=== PATIENT | male | born 1965 | race Caucasian/White ===

== ENCOUNTER 2020-11-12 14:02 | Inpatient (IN) | payer MEDICARE, SELFPAY ==
[2020-11-12 14:03] VITALS: BP 143/102; PULSE 88; RESP 20; TEMP 36.6; O2SAT 94; BMI 31.1
--- NOTE | 2020-11-12 15:24 | ED.VIS.GEN ---
History of Present Illness Chief Complaint: Substance Abuse Informant: Patient Narrative: Is a 55-year-old male with history of hemochromatosis, HIV (off his medications) and hypothyroid presenting for alcohol detox. Patient has a longstanding history of alcohol dependency. He states he has been drinking regularly for the past 8 months. He drinks 1/2 gallon of 40 proof vodka a day. He does use a THC substance as well as Ritalin which he has prescribed. He uses e-cigarettes. Patient states he is try to get sober because he is going to prison in December 09 for fellow any DUI. He states he does not have a drink he will get shaky and get the sweats. He denies any history of full DTs. His last drink was approximately 3 hours ago. Past Medical History - Allergies and Home Meds Allergies/Adverse Reactions: Allergies No Known Allergies Allergy (Verified 11/12/20 14:03) Past Medical History: - - HIV, hematoma process, hypothyroid, alcohol dependency Surgical History: noncontributory Lives: Alone Smoking Status: Current every day smoker Alcohol: Heavy - Family History Maternal Family History: Reports: No pertinent history Paternal Family History: Reports: No pertinent history Review of Systems General: Denies: Chills, Fever, Sweats Eyes: Denies: Visual changes - bilaterally, Diplopia ENT: Denies: Rhinorrhea, Sore throat Cardiovascular: Denies: Chest pain, Palpitations Respiratory: Denies: Dyspnea, Cough, Dyspnea on exertion Gastrointestinal: Denies: Abdominal pain, Nausea, Vomiting, Diarrhea, Melena, Hematochezia Genitourinary: Denies: Dysuria, Hematuria, Frequency Musculoskeletal: Denies: Back pain, Extremity Pain Skin: Denies: Rash, Wounds Neurological: Denies: Headache, Weakness, Numbness Physical Exam Vital Signs/Narrative: Vital Signs Temp Pulse Resp BP Pulse Ox 11/12/20 14:03 97.8 F 88 20 H 143/102 H 94 Inital Vital Signs reviewed: Yes General: Well nourished, Well developed, No Acute Distress Head: Normocephalic, Atraumatic Eyes: Perrl, EOMI ENT: Moist mucous membranes, No rhinorrhea Neck: Supple, Nontender Cardiovascular: Regular rate, Regular rhythm, No murmurs Respiratory: No distress, CTA bilaterally, Chest nontender Abdomen: Soft, Nontender, Nondistended, Normal bowel sounds Back: Nontender, Normal Inspection Extremities: Nontender, No edema Skin: Normal color, No rash Neurological: Alert, Oriented x3, Cranial nerves II-XII grossly intact, Normal Strength, Normal Sensation Psychological: Normal affect, Normal Mood Diagnostic/Tx/Re-eval Laboratory Data 11/12/20 11/12/20 11/12/20 15:30 15:30 15:30 WBC 7.5 RBC 3.65 L Hgb 13.6 Hct 37.7 L MCV 103.3 H MCH 37.3 H MCHC 36.1 H RDW Std Deviation 51.0 H RDW Coeff of Morena 13.3 Plt Count 185 MPV 9.1 Immature Gran % (Auto) 0.400 Neut % (Auto) 51.1 Lymph % (Auto) 41.5 H [place] % (Auto) 5.8 Eos % (Auto) 0.5 Baso % (Auto) 0.7 Absolute Neuts (auto) 3.8 Absolute Lymphs (auto) 3.10 Nucleated RBC % 0 PT 11.4 L INR 0.9 Sodium 137 Potassium 2.8 L Chloride 98 Carbon Dioxide 27.0 Anion Gap 12 BUN 8 Creatinine 1.40 H Estim Creat Clear Calc 64.67 Est GFR (MDRD) Af Amer 67 Est GFR (MDRD) Non-Af 56 L BUN/Creatinine Ratio 5.7 L Glucose 96 Calcium 9.0 Total Bilirubin 1.10 H AST 251 H ALT 82 H Alkaline Phosphatase 87 Total Protein 8.0 Albumin 4.1 Globulin 3.9 Albumin/Globulin Ratio 1.1 Urine Color Urine Clarity Urine pH Ur Specific [place] Urine Protein Urine Glucose (UA) Urine Ketones Urine Occult Blood Urine Nitrite Urine Bilirubin Urine Urobilinogen Ur Leukocyte Esterase Urine RBC Urine WBC Ur Squamous Epith Cells Urine Bacteria Urine Mucus Urine Opiates Screen Urine Methadone Screen Ur Barbiturates Screen Ur Phencyclidine Scrn Ur Amphetamines Screen U Methamphetamin-MDMA U Benzodiazepines Scrn Urine Cocaine Screen U Cannabinoids Screen Ur Drug Screen Comment Ethyl Alcohol 11/12/20 11/12/20 11/12/20 15:30 15:51 15:51 WBC RBC Hgb Hct MCV MCH MCHC RDW Std Deviation RDW Coeff of Morena Plt Count MPV Immature Gran % (Auto) Neut % (Auto) Lymph % (Auto) [place] % (Auto) Eos % (Auto) Baso % (Auto) Absolute Neuts (auto) Absolute Lymphs (auto) Nucleated RBC % PT INR Sodium Potassium Chloride Carbon Dioxide Anion Gap BUN Creatinine Estim Creat Clear Calc Est GFR (MDRD) Af Amer Est GFR (MDRD) Non-Af BUN/Creatinine Ratio Glucose Calcium Total Bilirubin AST ALT Alkaline Phosphatase Total Protein Albumin Globulin Albumin/Globulin Ratio Urine Color Yellow Urine Clarity Clear Urine pH 6.5 Ur Specific [place] 1.010 Urine Protein 30 H Urine Glucose (UA) Normal Urine Ketones 5 H Urine Occult Blood 50 H Urine Nitrite Negative Urine Bilirubin Negative Urine Urobilinogen Normal Ur Leukocyte Esterase Negative Urine RBC 0 SEEN Urine WBC 0 SEEN Ur Squamous Epith Cells 0 SEEN Urine Bacteria 0 SEEN Urine Mucus 0 SEEN Urine Opiates Screen NEGATIVE Urine Methadone Screen NEGATIVE Ur Barbiturates Screen NEGATIVE Ur Phencyclidine Scrn NEGATIVE Ur Amphetamines Screen NEGATIVE U Methamphetamin-MDMA NEGATIVE U Benzodiazepines Scrn NEGATIVE Urine Cocaine Screen POSITIVE H U Cannabinoids Screen POSITIVE H Ur Drug Screen Comment Ethyl Alcohol 244.0 - Medical Decision Making Patient is evaluated for request of alcohol detox. He appears nontoxic in no acute distress. Patient does appear mildly intoxicated. His motivation for going into detox is that he has to go to prison for felony DUI in 1 month and wants to be sober for that for. His brother is at the bedside. Detox screening labs are obtained and patient is admitted to the hospital service. ED Disposition - Plan for ED Patient: Disposition: Acute Care Hospital [facility] Diagnosis: Alcohol abuse, HIV (human immunodeficiency virus infection), Hypokalemia
[2020-11-12 15:47] LABS: Absolute Neutrophil Count 3.8 X10^3/uL (2.0-7.7); Basophil# 0.05 X10^3/uL; Basophil% 0.7 % (0-1); Eosinophil# 0.04 X10^3/uL; Eosinophils% 0.5 % (0-5); Hematocrit 37.7 % (40-54); Hemoglobin 13.6 g/dL (13.0-16.5); Lymphocyte % 41.5 % (19-41); Mean Corp Hgb Conc 36.1 g/dL (32-36); Mean Corpuscular Hgb 37.3 pg (27.0-32.0); Mean Corpuscular Volume 103.3 fL (80-94); Mean Platelet Vol. 9.1 fl (6.2-12.0); Monocyte# 0.43 X10^3/uL; Monocyte% 5.8 % (0-10); NRBC Flagged by Analyzer 0 % (0-5); Neutrophil # 3.82 X10^3/uL (2.7-7.7); Neutrophil % 51.1 % (47-70); Platelet Count 185 K/mm3 (150-450); RBC Distribution Width CV 13.3 % (11.6-14.6); Red Blood Count 3.65 M/mm3 (4.6-6.2); White Blood Count 7.5 K/mm3 (4.4-11.0)
[2020-11-12 15:49] VITALS: BP 159/93; PULSE 71; RESP 18; TEMP 37.1; O2SAT 96
[2020-11-12 15:49] LABS: International Normalized Ratio 0.9; Prothrombin Time (Protime)PT. 11.4 SECONDS (11.7-14.9)
[2020-11-12 16:00] LABS: Bacteria 0 SEEN /hpf (None Seen); Mucous, Urine 0 SEEN /hpf (<or=2+); Red Blood Cells-Urine 0 SEEN /hpf (0-5); Squamous Epithelial Cells - UA 0 SEEN /hpf (0-5); White Blood Cells 0 SEEN /hpf (0-5)
[2020-11-12 16:01] LABS: ALB/GLOB Ratio 1.1 RATIO (0.9-2.4); AST(SGOT) 251 U/L (15-37); Alanine Aminotransfer ALT/SGPT 82 U/L (16-61); Albumin, Serum 4.1 g/dL (3.2-5.0); Alkaline Phosphatase 87 U/L (45-117); Anion Gap 12 (5-15); BUN 8 mg/dL (7-18); BUN/Creat Ratio 5.7 RATIO (10-20); Chloride 98 mmol/L (98-107); EST Glomerular Filtration Rate 56 mL/min (>60); Est Glom Filt Rate - Afr Amer 67 mL/min (>60); Estimated Creatinine Clearance 64.67 ml/min; Globulin 3.9 g/dL (2.2-4.2); Glucose 96 mg/dL (74-106); Potassium 2.8 mmol/L (3.5-5.1); Sodium Level 137 mmol/L (136-145)
[2020-11-12 16:09] LABS: Color, Urine Yellow (Yellow); Glucose, Dipstick Normal (Normal); Ketone-Dipstick 5 mg/dl (Negative); Leukocyte Esterase-Dipstick Negative /ul (Negative); Nitrite-Dipstick Negative (Negative); Occult Blood-Urine 50 /ul (Negative); Protein-Dipstick 30 mg/dl (Negative); Urine Bilirubin Dipstick Negative (Negative); Urine Clarity Clear (Clear); Urine Urobilinogen Normal (Normal); Urine pH 6.5 (5.0 - 8.0)
[2020-11-12 16:12] VITALS: BP 159/93; PULSE 71; RESP 18; TEMP 37.1; O2SAT 96
[2020-11-12 16:25] LABS: Amphetamine Urine VISTA NEGATIVE (<1000 ng/mL); Barbiturate Urine VISTA NEGATIVE (< 200 ng/mL); Benzodiazepine Urine VISTA NEGATIVE (< 200 ng/mL); Cocaine Urine VISTA POSITIVE (< 300 ng/mL); Ecstacy Urine VISTA NEGATIVE (< 500 ng/mL); Methadone Urine VISTA NEGATIVE (< 300 ng/mL); PCP Urine VISTA NEGATIVE (< 25 ng/mL); THC Urine VISTA POSITIVE (< 50 ng/mL); Vista UDS pH Range 7
--- NOTE | 2020-11-12 16:25 | NURSING ---
MED SURG SLY ALCOHOL DETOX
--- NOTE | 2020-11-12 16:26 | HP.PCM_ITS ---
Problem List (1) Acute alcohol withdrawal Status: Acute (2) Alcohol abuse Status: Chronic (3) Bipolar disorder Status: Chronic (4) Hemochromatosis Status: Chronic (5) Hypothyroidism Status: Chronic (6) HIV (human immunodeficiency virus infection) Status: Chronic History of Present Illness Date of Admission: 11/12/20 Chief Complaint: Requesting admission for acute alcohol withdrawal. The patient is a 55 year old M with past medical history as mentioned above presented to the emergency room requesting admission for acute alcohol intoxication/impending withdrawal for medical stabilization. He has a known history of alcohol abuse, has been drinking for almost 40 years, went for detox last time was on 2011 but he relapsed. He has been drinking every day since then. His last drink was this afternoon around 1 PM. He has been drinking he avily every day and also admitted snorting cocaine occasionally and uses marijuana as well. He mentioned that he does not use cocaine or marijuana daily but intermittently. He mentioned that he supposed to take medications for HIV and hypothyroidism but he has been taking his medication for at least 6 to 7 months. He has been noncompliant. He had a history of HIV, has been on treatment with antiretroviral medications but he is noncompliant. He had a history of hypothyroidism has been on high dose of levothyroxine but he is not taking his levothyroxine. He had a history of depression and bipolar disorder but again not taking his medications including Lamictal and fluoxetine. In the emergency department, blood pressure was slight elevated, other vital signs were stable. Routine blood work was remarkable for creatinine of 1.40, potassium is 2.8. LFT revealed slight elevated liver transaminases. Alk phos and bilirubin are normal. Blood alcohol level is 244. Urinalysis was unremarkable. Urine drug screen was positive for cocaine and cannabinoids. Patient is being admitted for acute alcohol intoxication/impending withdrawal for medical stabilization. Past Medical History Past Medical History (Chronic Problems): Chronic Problems Alcohol abuse (Chronic) Bipolar disorder (Chronic) Hemochromatosis (Chronic) Hypothyroidism (Chronic) HIV (human immunodeficiency virus infection) (Chronic) Allergies No Known Allergies Allergy (Verified 11/12/20 14:03) Home Medications: Ambulatory Orders Medication Instructions Recorded Dronabinol [Marinol] 10 mg PO QHS 11/12/20 Fluoxetine HCl 40 mg PO DAILY 11/12/20 Lamotrigine [Lamotrigine ER] 300 mg PO QHS 11/12/20 Levothyroxine Sodium [Synthroid] 300 mcg PO DAILY 11/12/20 Omeprazole 20 mg PO DAILY 11/12/20 traZODone [Desyrel] 200 mg PO QHS 11/12/20 Surgical History: noncontributory Psychiatric History: Bipolar, Depression Lives: Alone Smoking Status: Current every day smoker Tobacco Use: - - Electronic cigarettes. Alcohol: Heavy Drugs: Cocaine, Marijuana - *Family History Maternal History Items: No pertinent history Paternal History Items: No pertinent history Review of Systems Constitutional: Denies: Anorexia, Chills, Fever, Weakness Eyes: Denies: Blurred vision, Double vision, Drainage, Redness HEENT: Denies: Difficulty Hearing, Ear Pain, Eye Pain, Nasal Congestion, Sore Throat Cardiovascular: Denies: Chest Pain, Claudication, Chest Tightness, Edema, Heaviness, Palpitations, Syncope Respiratory: Denies: Cough, Pleuritic Pain, Shortness of Breath, Sputum production, Wheezing Gastrointestinal: Denies: Abdominal Pain, Constipation, Diarrhea, Nausea, Vomiti ng Genitourinary: Denies: Dysuria, Frequency, Hematuria Musculoskeletal: Denies: Arm Pain, Back Pain, Foot Pain Skin: Denies: Dryness, Rash Neurological: Denies: Balance problems, Blurred vision, Double vision, Slurred speech, Confusion, Headaches Psychiatric: Reports: Depression. Denies: Anxiety Endocrine: Denies: Change in Body Habitus, Polydipsia, Polyuria VTE Information - Inpt Only VTE Present on Admission: No VTE Mechan Device Prophylaxis: None VTE Pharm Prophylaxis ordered?: No Patient Problems: Active and Suspected Problems Hypokalemia (Acute) Acute alcohol withdrawal (Acute) - Physical Exam Vitals/I&O's: Vital Signs Temp Pulse Resp BP Pulse Ox 98.7 F 71 18 159/93 H 96 11/12/20 16:12 11/12/20 16:12 11/12/20 16:12 11/12/20 16:12 11/12/20 16:12 Oxygen Delivery Method Room Air Weight: 230 lb Body Mass Index (BMI) 31.1 General: Alert, Oriented x3, Cooperative, No apparent distress HEENT: Atraumatic, PERRLA, EOMI, Normocephalic Oral: Moist Mucosa, No Gingival or Mucosal Lesions/ Ulcerations Neck: Supple, No JVD, Negative Carotid Bruits, Trachea Midline, Thyroid Normal Size and Texture Lungs: Clear to auscultation, Normal air movement, No rhonchi, No wheeze, No rales Cardiovascular: Regular rate, Regular Rhythm, Normal S1, Normal S2, PMI Normal Abdomen: Bowel Sounds Present, Soft, Non Tender, Non-Distended, No Hepato- splenomegaly Extremities: No clubbing, No cyanosis, Edema - Trace edema. Skin: No rashes, No breakdown Lymphatic: No Cervical, Supraclavicular, or Inguinal Adenopathy Neurological: Cranial nerves II-XII grossly intact, Motor Exam 5/5 strength throughout Psych/Mental Status: Normal Affect, Appropriate, Alert and oriented to time, place, person, mood and affect Laboratory Results 11/12/20 15:30: WBC 7.5, RBC 3.65 L, Hgb 13.6, Hct 37.7 L, MCV 103.3 H, MCH 37.3 H, MCHC 36.1 H, RDW Std Deviation 51.0 H, RDW Coeff of Morena 13.3, Plt Count 185, MPV 9.1, Immature Gran % (Auto) 0.400, Neut % (Auto) 51.1, Lymph % (Auto) 41.5 H, [place] % (Auto) 5.8, Eos % (Auto) 0.5, Baso % (Auto) 0.7, Absolute Neuts (auto) 3.8, Absolute Lymphs (auto) 3.10, Nucleated RBC % 0 11/12/20 15:30: PT 11.4 L, INR 0.9 11/12/20 15:30: Sodium 137, Potassium 2.8 L, Chloride 98, Carbon Dioxide 27.0, Anion Gap 12, BUN 8, Creatinine 1.40 H, Estim Creat Clear Calc 64.67, Est GFR (MDRD) Af Amer 67, Est GFR (MDRD) Non-Af 56 L, BUN/Creatinine Ratio 5.7 L, Glucose 96, Calcium 9.0, Total Bilirubin 1.10 H, AST 251 H, ALT 82 H, Alkaline Phosphatase 87, Total Protein 8.0, Albumin 4.1, Globulin 3.9, Albumin/Globulin Ratio 1.1 11/12/20 15:30: Ethyl Alcohol 244.0 11/12/20 15:51: Urine Opiates Screen NEGATIVE, Urine Methadone Screen NEGATIVE, Ur Barbiturates Screen NEGATIVE, Ur Phencyclidine Scrn NEGATIVE, Ur Amphetamines Screen NEGATIVE, U Methamphetamin-MDMA NEGATIVE, U Benzodiazepines Scrn NEGATIVE, Urine Cocaine Screen POSITIVE H, U Cannabinoids Screen POSITIVE H, Ur Drug Screen Comment 11/12/20 15:51: Urine Color Yellow, Urine Clarity Clear, Urine pH 6.5, Ur Specific [place] 1.010, Urine Protein 30 H, Urine Glucose (UA) Normal, Urine Ketones 5 H, Urine Occult Blood 50 H, Urine Nitrite Negative, Urine Bilirubin Negative, Urine Urobilinogen Normal, Ur Leukocyte Esterase Negative, Urine RBC 0 SEEN, Urine WBC 0 SEEN, Ur Squamous Epith Cells 0 SEEN, Urine Bacteria 0 SEEN, Urine Mucus 0 SEEN Assessment/Plan All Active Problems Hypokalemia (Acute) Acute alcohol withdrawal (Acute) This is a 55 years old male patient presented to the emergency room requesting admission for acute alcohol intoxication/impending withdrawal and he is being admitted for medical stabilization. #1 acute alcohol desiccation/impending withdrawal: Blood alcohol level on admission was 244. Patient denies significant withdrawal symptoms at this time. Patient admitted snorting heroin and smoked marijuana occasionally. He is not a daily user. Plan: Admit to MedSurg floor, initiate alcohol withdrawal protocol with tapering phenobarbital, folic acid and thiamine supplement, as needed Neurontin, Vistaril, Imodium, Zofran, trazodone, consult 180 program. #2 hypokalemia/mild PIERRE: Plan to start gentle IV fluids for hydration, replace potassium with p.o. K. Dur 60 mEq x 1, repeat CBC and BMP tomorrow morning. #3 HIV infection: Patient has been noncompliant, stopped taking his medications of months ago. Recommend to resume home medications and follow-up with ID as outpatient. #4 hypothyroidism: Again, patient has been noncompliant, not taking his levothyroxine. Plan to resume levothyroxine, check TSH. #5 depression/bipolar disorder: Resume fluoxetine and lamotrigine. #6 hemochromatosis: Liver transaminases are slightly elevated likely because of alcoholism. Bilirubin is 1.1, alk phos is normal. #7 DVT prophylaxis: Low risk patient, no prophylaxis indicated. This note was generated with Dragon dictation software. It may contain incorrect words, spelling, and punctuation that were not noted in checking the note befor e signing. Inpatient E&M: [id number] Init Hosp L2
--- NOTE | 2020-11-12 16:47 | CM.ED ---
SOCIAL WORK Referral Source: Dr. Russo Reason for Consult: Alcohol detox Patient presents for alcohol detox. Prior to patient's arrival received phone call from family inquiring about detox program. Patient from [facility] [place]. Education of [facility] provided. Patient in agreement to detox. Last drink was prior to arrival. Call to [facility] Treatment NavigatorBarak to update on patient's admission. emu farm worker to be in tomorrow to complete assessment. Plan: Admit to [facility], MASTER SCHEDULER, VISUAL MERCHANDISING SPECIALIST
[2020-11-12 17:35] VITALS: BP 145/85; PULSE 71; RESP 16; TEMP 36.8; O2SAT 97
[2020-11-12 17:36] VITALS: BMI 30.7
[2020-11-12 17:37] VITALS: BMI 30.7
[2020-11-12] MEDS: Potassium Chloride Oral Tablet 20 MEQ 60 MEQ PO (18:04)
[2020-11-12] MEDS: Phenobarbital 32.4 MG Tablet PO ×2 (18:04→21:42)
[2020-11-12] MEDS: 0.9% Normal Saline 1,000 ML 100 ML IV (18:15)
[2020-11-12] MEDS: Dronabinol 2.5 MG Capsule 10 MG PO (21:42)
[2020-11-12] MEDS: traZODone 100 MG Tablet PO (21:44)
[2020-11-12] MEDS: lamoTRIgine 150 MG Tablet 300 MG PO (21:45)
[2020-11-12 21:50] VITALS: BP 140/84; PULSE 69; RESP 16; TEMP 36.8; O2SAT 94
[2020-11-13 02:00] VITALS: BP 141/83; PULSE 69; RESP 16; TEMP 36.5; O2SAT 94
[2020-11-13] MEDS: Phenobarbital 32.4 MG Tablet PO ×6 (02:14→21:38)
[2020-11-13] MEDS: Ondansetron 8 MG Tablet PO (02:21)
[2020-11-13] MEDS: Dicyclomine 10 MG Capsule 20 MG PO (02:21)
[2020-11-13 05:59] VITALS: BP 130/83; PULSE 64; RESP 16; TEMP 36.7; O2SAT 96
[2020-11-13 05:59] LABS: Absolute Lymphocyte Count 1.71 X10^3/uL (0.83-4.51); Absolute Neutrophil Count 3.8 X10^3/uL (2.0-7.7); Basophil# 0.04 X10^3/uL; Basophil% 0.7 % (0-1); Eosinophil# 0.08 X10^3/uL; Eosinophils% 1.3 % (0-5); Hematocrit 35.6 % (40-54); Hemoglobin 12.3 g/dL (13.0-16.5); Lymphocyte # 1.71 X10^3/ul (4.0); Lymphocyte % 28.2 % (19-41); Mean Corp Hgb Conc 34.6 g/dL (32-36); Mean Corpuscular Hgb 36.8 pg (27.0-32.0); Mean Corpuscular Volume 106.6 fL (80-94); Mean Platelet Vol. 8.9 fl (6.2-12.0); Monocyte# 0.39 X10^3/uL; Monocyte% 6.4 % (0-10); NRBC Flagged by Analyzer 0 % (0-5); Neutrophil # 3.81 X10^3/uL (2.7-7.7); Neutrophil % 62.9 % (47-70); Platelet Count 137 K/mm3 (150-450); RBC Distribution Width CV 13.6 % (11.6-14.6); RBC Distribution Width SD 53.6 fl (35.1-43.9); Red Blood Count 3.34 M/mm3 (4.6-6.2); White Blood Count 6.1 K/mm3 (4.4-11.0)
[2020-11-13] MEDS: hydrOXYzine PAM 25 MG Capsule 50 MG PO ×2 (06:09→15:10)
[2020-11-13] MEDS: Levothyroxine 150 MCG Tablet 300 MCG PO (06:09)
[2020-11-13] MEDS: Gabapentin 300 MG Capsule PO (06:09)
[2020-11-13 06:25] LABS: AST(SGOT) 170 U/L (15-37); Alanine Aminotransfer ALT/SGPT 63 U/L (16-61); Albumin, Serum 3.2 g/dL (3.2-5.0); Alkaline Phosphatase 86 U/L (45-117); Anion Gap 7 (5-15); BUN 8 mg/dL (7-18); BUN/Creat Ratio 6.4 RATIO (10-20); Calcium,Total 8.3 mg/dL (8.5-10.1); Chloride 104 mmol/L (98-107); Creatinine, Serum 1.25 mg/dL (0.70-1.30); EST Glomerular Filtration Rate 63 mL/min (>60); Est Glom Filt Rate - Afr Amer 77 mL/min (>60); Estimated Creatinine Clearance 72.43 ml/min; Globulin 3.3 g/dL (2.2-4.2); Glucose 95 mg/dL (74-106); Potassium 3.1 mmol/L (3.5-5.1); Protein, Total 6.5 g/dL (6.4-8.2); Sodium Level 139 mmol/L (136-145)
[2020-11-13 07:48] LABS: Magnesium 2.2 mg/dL (1.6-2.6)
[2020-11-13] MEDS: Thiamine Hydrochloride 100 MG Tablet PO (10:12)
[2020-11-13] MEDS: Folic Acid 1 MG Tablet PO (10:12)
[2020-11-13] MEDS: Pantoprazole Sodium 20 MG Tablet PO (10:13)
[2020-11-13] MEDS: FLUoxetine 20 MG Capsule 40 MG PO (10:13)
[2020-11-13] MEDS: Potassium Chloride Oral Tablet 20 MEQ 60 MEQ PO (10:20)
--- NOTE | 2020-11-13 10:24 | ADDICTION ---
This policy writer sales met with PT to complete ASAM, MSE, AUDIT assessments and to plan for d/c. All assessments completed, faxed to [facility] and placed in PT's chart. PT plans to f/u with [facility] for case management, individual counseling, and psychiatry upon d/c. PT also reported wanting to engage in AA meetings. Appts are scheduled for 11/18/2020 at 11AM w/ case management; 11/25/20 at 10:45AM with psychiatry; 12/05/20 at 9AM for counseling.
--- NOTE | 2020-11-13 10:46 | PCM.PN.HOSP ---
Patient Problems: Active and Suspected Problems Hypokalemia (Acute) Acute alcohol withdrawal (Acute) Subjective: Resting comfortably, no new issues overnight. Vitals/I&O's: Vital Signs Temp Pulse Resp BP Pulse Ox 98.0 F 64 16 130/83 H 96 11/13/20 05:59 11/13/20 05:59 11/13/20 05:59 11/13/20 05:59 11/13/20 05:59 Oxygen Delivery Method Room Air Weight: 226 lb 6.4 oz Body Mass Index (BMI) 30.7 Intake and Output for Last 24 Hours 11/11/20 11/12/20 11/13/20 23:59 23:59 23:59 Intake Total 240 / 240 958.33 / 958.33 Balance 240 / 240 958.33 / 958.33 General: Alert, Oriented x3, Cooperative, No apparent distress HEENT: Atraumatic, PERRLA, EOMI, Normocephalic Oral: Moist Mucosa Neck: Supple, No JVD Lungs: Clear to auscultation, Normal air movement, No rhonchi, No wheeze, No rales Abdomen: Soft, Non Tender, Non-Distended, No Hepato-splenomegaly Extremities: Capillary Refill Less than 3 Seconds, Edema - Trace Skin: No rashes, No breakdown Neurological: Neuro grossly intact, Sensory exam intact to light touch and pain Psych/Mental Status: Normal Affect, Appropriate Laboratory Results 11/12/20 15:30: WBC 7.5, RBC 3.65 L, Hgb 13.6, Hct 37.7 L, MCV 103.3 H, MCH 37.3 H, MCHC 36.1 H, RDW Std Deviation 51.0 H, RDW Coeff of Morena 13.3, Plt Count 185, MPV 9.1, Immature Gran % (Auto) 0.400, Neut % (Auto) 51.1, Lymph % (Auto) 41.5 H, [place] % (Auto) 5.8, Eos % (Auto) 0.5, Baso % (Auto) 0.7, Absolute Neuts (auto) 3.8, Absolute Lymphs (auto) 3.10, Nucleated RBC % 0 11/12/20 15:30: PT 11.4 L, INR 0.9 11/12/20 15:30: Sodium 137, Potassium 2.8 L, Chloride 98, Carbon Dioxide 27.0, Anion Gap 12, BUN 8, Creatinine 1.40 H, Estim Creat Clear Calc 64.67, Est GFR (MDRD) Af Amer 67, Est GFR (MDRD) Non-Af 56 L, BUN/Creatinine Ratio 5.7 L, Glucose 96, Calcium 9.0, Total Bilirubin 1.10 H, AST 251 H, ALT 82 H, Alkaline Phosphatase 87, Total Protein 8.0, Albumin 4.1, Globulin 3.9, Albumin/Globulin Ratio 1.1 11/12/20 15:30: Ethyl Alcohol 244.0 11/12/20 15:30: TSH 69.30 H 11/12/20 15:51: Urine Opiates Screen NEGATIVE, Urine Methadone Screen NEGATIVE, Ur Barbiturates Screen NEGATIVE, Ur Phencyclidine Scrn NEGATIVE, Ur Amphetamines Screen NEGATIVE, U Methamphetamin-MDMA NEGATIVE, U Benzodiazepines Scrn NEGATIVE, Urine Cocaine Screen POSITIVE H, U Cannabinoids Screen POSITIVE H, Ur Drug Screen Comment 11/12/20 15:51: Urine Color Yellow, Urine Clarity Clear, Urine pH 6.5, Ur Specific [place] 1.010, Urine Protein 30 H, Urine Glucose (UA) Normal, Urine Ketones 5 H, Urine Occult Blood 50 H, Urine Nitrite Negative, Urine Bilirubin Negative, Urine Urobilinogen Normal, Ur Leukocyte Esterase Negative, Urine RBC 0 SEEN, Urine WBC 0 SEEN, Ur Squamous Epith Cells 0 SEEN, Urine Bacteria 0 SEEN, Urine Mucus 0 SEEN 11/13/20 05:52: WBC 6.1, RBC 3.34 L, Hgb 12.3 L, Hct 35.6 L, MCV 106.6 H, MCH 36.8 H, MCHC 34.6, RDW Std Deviation 53.6 H, RDW Coeff of More[place] 13.6, Plt Count 137 L, MPV 8.9, Immature Gran % (Auto) 0.500, Neut % (Auto) 62.9, Lymph % (Auto) 28.2, [place] % (Auto) 6.4, Eos % (Auto) 1.3, Baso % (Auto) 0.7, Absolute Neuts (auto) 3.8, Absolute Lymphs (auto) 1.71, Nucleated RBC % 0 11/13/20 05:52: Sodium 139, Potassium 3.1 L, Chloride 104, Carbon Dioxide 28.0, Anion Gap 7, BUN 8, Creatinine 1.25, Estim Creat Clear Calc 72.43, Est GFR (MDRD) Af Amer 77, Est GFR (MDRD) Non-Af 63, BUN/Creatinine Ratio 6.4 L, Glucose 95, Calcium 8.3 L, Total Bilirubin 1.10 H, AST 170 H, ALT 63 H, Alkaline Phosphatase 86, Total Protein 6.5, Albumin 3.2, Globulin 3.3, Albumin/Globulin Ratio 1.0 11/13/20 05:52: Magnesium 2.2 Current Medications Dicyclomine HCl (Dicyclomine 10 Mg Capsule) 20 mg PO Q6H PRN PRN PRN Reason: abdominal discomfort Last Admin: 11/13/20 02:21 Dose: 20 mg Documented by: Dronabinol (Dronabinol 2.5 Mg Capsule) 10 mg PO QHS [facility] Last Admin: 11/12/20 21:42 Dose: 10 mg Documented by: Fluoxetine HCl (Fluoxetine 20 Mg Capsule) 40 mg PO DAILY [facility] Last Admin: 11/13/20 10:13 Dose: 40 mg Documented by: Folic Acid (Folic Acid 1 Mg Tablet) 1 mg PO DAILY@0800 [facility] Last Admin: 11/13/20 10:12 Dose: 1 mg Documented by: Gabapentin (Gabapentin 300 Mg Capsule) 300 mg PO Q8H PRN PRN PRN Reason: moderate to severe anxiety Last Admin: 11/13/20 06:09 Dose: 300 mg Documented by: Hydroxyzine Pamoate (Hydroxyzine Ana 25 Mg Capsule) 50 mg PO Q4H PRN PRN PRN Reason: mild anxiety Last Admin: 11/13/20 06:09 Dose: 50 mg Documented by: Lamotrigine (Lamotrigine 150 Mg Tablet) 300 mg PO QHS [facility] Last Admin: 11/12/20 21:45 Dose: 300 mg Documented by: Levothyroxine Sodium (Levothyroxine 150 Mcg Tablet) 300 mcg PO DAILY@0600 [facility] Last Admin: 11/13/20 06:09 Dose: 300 mcg Documented by: Loperamide HCl (Loperamide 2 Mg Capsule) 2 mg PO Q4H PRN PRN PRN Reason: LOOSE STOOLS Nutritional Formula (Lactose Free) (Ensure Enlive 120 Ml Liquid) 120 ml PO 4X/DAY [facility] Last Admin: 11/13/20 10:19 Dose: 120 ml Documented by: Ondansetron HCl (Ondansetron 8 Mg Tablet) 8 mg PO Q8H PRN PRN PRN Reason: NAUSEA Last Admin: 11/13/20 02:21 Dose: 8 mg Documented by: Pantoprazole Sodium (Pantoprazole Sodium 20 Mg Tablet) 20 mg PO DAILY [facility] Last Admin: 11/13/20 10:13 Dose: 20 mg Documented by: Phenobarbital (Phenobarbital 32.4 Mg Tablet) 97.2 mg PO Q4H [facility]; Taper Stop: 11/17/20 01:59 Last Admin: 11/13/20 10:12 Dose: 97.2 mg Documented by: Sodium Chloride (0.9% Saline Lock 10 Ml Syringe) 10 - 40 ml IV UD PRN PRN Reason: SALINE FLUSH Thiamine HCl ([facility] Hydrochloride 100 Mg Tablet) [facility] Admin: 11/13/20 10:12 Dose: 100 mg Documented by: Trazodone HCl (Trazodone 100 Mg Tablet) 100 mg PO QHS PRN PRN Reason: INSOMNIA Trazodone HCl (Trazodone 100 Mg Tablet) 100 mg PO QHS [facility] Last Admin: 11/12/20 21:44 Dose: 100 mg Documented by: Medical Necessity - Tobacco Use Smoking Status: Current every day smoker Tobacco Use: Cigarettes, Vapor Assessment/Plan All Active Problems Hypokalemia (Acute) Acute alcohol withdrawal (Acute) 1. Acute alcohol withdrawal/depression/bipolar disorder -Continue with the alcohol withdrawal protocol -Resume his Prozac and his Lamictal -He will need to follow-up with 180 as an outpatient 2. Hypothyroidism -Has not been taking his medications for several months -TSH was elevated to 69, discussed with him that being severely hypothyroid for long enough can be fatal -Continue with his Synthroid dosage 3. HIV -He has been noncompliant with his medications and stopped taking his medications for several months -He did bring them with him and therefore will resume those medications -He will need to follow-up with ID as an outpatient for viral load testing and if adjustments to his medications need to be made since he has been off of them for several months -I discussed with him that once again not taking his HIV medications can be fatal 4. Hemochromatosis -LFTs are slightly elevated likely secondary to his hemochromatosis on top of his alcohol use -Continue to monitor 5. Hypokalemia -Potassium increased from 2.8-3.1, will replace today -Magnesium is normal -PIERRE has resolved VTE: Ambulation Inpatient E&M: 38342 Subs Hosp L2
[2020-11-13 15:13] VITALS: BP 134/72; PULSE 63; RESP 18; TEMP 36.3; O2SAT 97
--- NOTE | 2020-11-13 15:32 | CHAPLAIN ---
Type of Pastoral Visit ___ Initial Visit ___ Follow-up Visit ___ On-call Visit ___ General Patient Visit ___ Spiritual Assessment ___ Family Conference ___ Bereavement ___ Rapid Response ___ Code Blue ___ Other (describe below) Pastoral Care Referral From ___ Patient ___ Family ___ Nurse ___ Physician ___ Resource Director ___ Title One Teacher ___ Other (describe below) Sacrament/Intervention ___ Active listening ___ Anointing ___ Religious ___ Bereavement ___ Communion ___ Teresa exploration ___ ___ Life review ___ Prayer ___ Reconciliation ___ Sacrament of Sick ___ Supportive presence ___ Wedding ___ Other (describe below) Pastoral Comments patient awakened to his name; pt asked if this field service analyst was working tomorrow because I'm really tired right now; agreement for a visit on
[2020-11-13 20:41] VITALS: BP 131/87; PULSE 61; RESP 18; TEMP 36.4; O2SAT 100
[2020-11-13] MEDS: Dronabinol 2.5 MG Capsule 10 MG PO (21:38)
[2020-11-13] MEDS: lamoTRIgine 150 MG Tablet 300 MG PO (21:38)
[2020-11-13] MEDS: traZODone 100 MG Tablet PO (21:38)
[2020-11-14 02:00] VITALS: BP 120/76; PULSE 59; RESP 18; TEMP 36.6; O2SAT 94
[2020-11-14] MEDS: Phenobarbital 32.4 MG Tablet PO ×6 (02:04→22:29)
[2020-11-14] MEDS: Levothyroxine 150 MCG Tablet 300 MCG PO (06:27)
[2020-11-14 06:35] LABS: Anion Gap 7 (5-15); BUN 11 mg/dL (7-18); BUN/Creat Ratio 7.9 RATIO (10-20); Chloride 103 mmol/L (98-107); Creatinine, Serum 1.39 mg/dL (0.70-1.30); EST Glomerular Filtration Rate 56 mL/min (>60); Est Glom Filt Rate - Afr Amer 68 mL/min (>60); Estimated Creatinine Clearance 65.13 ml/min; Glucose 94 mg/dL (74-106); Potassium 3.6 mmol/L (3.5-5.1); Sodium Level 141 mmol/L (136-145)
[2020-11-14] MEDS: Pantoprazole Sodium 20 MG Tablet PO (09:39)
[2020-11-14] MEDS: hydrOXYzine PAM 25 MG Capsule 50 MG PO ×2 (09:39→14:43)
[2020-11-14] MEDS: Thiamine Hydrochloride 100 MG Tablet PO (09:39)
[2020-11-14] MEDS: Folic Acid 1 MG Tablet PO (09:39)
[2020-11-14] MEDS: FLUoxetine 20 MG Capsule 40 MG PO (09:39)
[2020-11-14 09:42] VITALS: BP 125/66; PULSE 61; RESP 18; TEMP 36.7; O2SAT 95
--- NOTE | 2020-11-14 10:28 | PN_ITS ---
Patient Problems: Active and Suspected Problems Hypokalemia (Acute) Acute alcohol withdrawal (Acute) Subjective: Had a little bit of a rough night with CIWA was at 17. Vitals/I&O's: Vital Signs Temp Pulse Resp BP Pulse Ox 98.0 F 61 18 125/66 H 95 11/14/20 09:42 11/14/20 09:42 11/14/20 09:42 11/14/20 09:42 11/14/20 09:42 Oxygen Delivery Method Room Air Weight: 226 lb 6.636 oz Body Mass Index (BMI) 30.7 Intake and Output for Last 24 Hours 11/12/20 11/13/20 11/14/20 23:59 23:59 23:59 Intake Total 240 / 240 958.33 / 958.33 Balance 240 / 240 958.33 / 958.33 General: Alert, Oriented x3, Cooperative, No apparent distress HEENT: Atraumatic, PERRLA, EOMI, Normocephalic Oral: Moist Mucosa Neck: Supple, No JVD Lungs: Clear to auscultation, Normal air movement, No rhonchi, No wheeze, No rales Abdomen: Soft, Non Tender, Non-Distended, No Hepato-splenomegaly Extremities: Capillary Refill Less than 3 Seconds, Edema - Trace Skin: No rashes, No breakdown Neurological: Neuro grossly intact, Sensory exam intact to light touch and pain Psych/Mental Status: Normal Affect, Appropriate Laboratory Results 11/14/20 06:00: Sodium 141, Potassium 3.6, Chloride 103, Carbon Dioxide 31.0, Anion Gap 7, BUN 11, Creatinine 1.39 H, Estim Creat Clear Calc 65.13, Est GFR (MDRD) Af Amer 68, Est GFR (MDRD) Non-Af 56 L, BUN/Creatinine Ratio 7.9 L, Gluco se 94, Calcium 9.0 Current Medications Dicyclomine HCl (Dicyclomine 10 Mg Capsule) 20 mg PO Q6H PRN PRN PRN Reason: abdominal discomfort Last Admin: 11/13/20 02:21 Dose: 20 mg Documented by: Dronabinol (Dronabinol 2.5 Mg Capsule) 10 mg PO QHS [facility] Last Admin: 11/13/20 21:38 Dose: 10 mg Documented by: Fluoxetine HCl (Fluoxetine 20 Mg Capsule) 40 mg PO DAILY [facility] Last Admin: 11/14/20 09:39 Dose: 40 mg Documented by: Folic Acid (Folic Acid 1 Mg Tablet) 1 mg PO DAILY@0800 [facility] Last Admin: 11/14/20 09:39 Dose: 1 mg Documented by: Gabapentin (Gabapentin 300 Mg Capsule) 300 mg PO Q8H PRN PRN PRN Reason: moderate to severe anxiety Last Admin: 11/13/20 06:09 Dose: 300 mg Documented by: Hydroxyzine Pamoate (Hydroxyzine Ana 25 Mg Capsule) 50 mg PO Q4H PRN PRN PRN Reason: mild anxiety Last Admin: 11/14/20 09:39 Dose: 50 mg Documented by: Lamotrigine (Lamotrigine 150 Mg Tablet) 300 mg PO QHS [facility] Last Admin: 11/13/20 21:38 Dose: 300 mg Documented by: Levothyroxine Sodium (Levothyroxine 150 Mcg Tablet) 300 mcg PO DAILY@0600 [facility] Last Admin: 11/14/20 06:27 Dose: 300 mcg Documented by: Loperamide HCl (Loperamide 2 Mg Capsule) 2 mg PO Q4H PRN PRN PRN Reason: LOOSE STOOLS Nutritional Formula (Lactose Free) (Ensure Enlive 120 Ml Liquid) 120 ml PO 4X/DAY [facility] Last Admin: 11/13/20 21:38 Dose: 120 ml Documented by: Ondansetron HCl (Ondansetron 8 Mg Tablet) 8 mg PO Q8H PRN PRN PRN Reason: NAUSEA Last Admin: 11/13/20 02:21 Dose: 8 mg Documented by: Pantoprazole Sodium (Pantoprazole Sodium 20 Mg Tablet) 20 mg PO DAILY [facility] Last Admin: 11/14/20 09:39 Dose: 20 mg Documented by: Phenobarbital (Phenobarbital 32.4 Mg Tablet) 64.8 mg PO Q4H [facility]; Taper Stop: 11/17/20 01:59 Last Admin: 11/14/20 09:38 Dose: 64.8 mg Documented by: Sodium Chloride (0.9% Saline Lock 10 Ml Syringe) 10 - 40 ml IV UD PRN PRN Reason: SALINE FLUSH Thiamine HCl ([facility]amine Hydrochloride 100 Mg Tablet) [facility] Last Admin: 11/14/20 09:39 Dose: 100 mg Documented by: Trazodone HCl (Trazodone 100 Mg Tablet) 100 mg PO QHS PRN PRN Reason: INSOMNIA Trazodone HCl (Trazodone 100 Mg Tablet) 100 mg PO QHS [facility] Last Admin: 11/13/20 21:38 Dose: 100 mg Documented by: STROKE Vital Signs/Narrative: Vital Signs Temp Pulse Resp BP Pulse Ox 11/14/20 09:42 98.0 F 61 18 125/66 H 95 Medical Necessity - Tobacco Use Smoking Status: Current every day smoker Tobacco Use: Cigarettes, Vapor Assessment/Plan All Active Problems Hypokalemia (Acute) Acute alcohol withdrawal (Acute) 1. Acute alcohol withdrawal/depression/bipolar disorder -Continue with the alcohol withdrawal protocol -Resume his Prozac and his Lamictal at 25 mg daily to avoid any side effects we will plan to titrate him up over the next 6 to 8 weeks to his 300 mg nightly dose. -He will need to follow-up with 180 as an outpatient 2. Hypothyroidism -Has not been taking his medications for several months -TSH was elevated to 69, discussed with him that being severely hypothyroid for long enough can be fatal -Continue with his Synthroid dosage 3. HIV -He has been noncompliant with his medications and stopped taking his medications for several months -He did bring them with him and therefore will resume those medications -He will need to follow-up with ID as an outpatient for viral load testing and if adjustments to his medications need to be made since he has been off of them for several months -I discussed with him that once again not taking his HIV medications can be fatal 4. Hemochromatosis -LFTs are slightly elevated likely secondary to his hemochromatosis on top of his alcohol use -Continue to monitor 5. Hypokalemia-resolved -PIERRE has resolved VTE: Ambulation Inpatient E&M: 83044 Subs Hosp L2
[2020-11-14 14:44] VITALS: BP 131/86; PULSE 65; RESP 18; TEMP 37.1; O2SAT 97
--- NOTE | 2020-11-14 16:01 | CHAPLAIN ---
Type of Pastoral Visit _x__ Initial Visit ___ Follow-up Visit ___ On-call Visit ___ General Patient Visit ___ Spiritual Assessment ___ Family Conference ___ Bereavement ___ Rapid Response ___ Code Blue ___ Other (describe below) Pastoral Care Referral From _x__ Patient ___ Family ___ Nurse ___ Physician ___ House Player ___ Gas Welding Equipment Mechanic ___ Other (describe below) Sacrament/Intervention _x__ Active listening ___ Anointing ___ Taoist ___ Bereavement ___ Communion _x__ Teresa exploration ___ _x__ Life review _x__ Prayer ___ Reconciliation ___ Sacrament of Sick _x__ Supportive presence ___ Wedding ___ Other (describe below) Pastoral Comments patient was sleeping but awoke easily and sat up in bed and started talking; pt immediately indicates his need for spiritual help; pt states that his life is really troubled and that he needs to have God; pt has been in AA and says I've done all the steps but to accept the Higher Power or God and I need to know how to do that; long discussion about spiritual matters and prayer; pt gives a life review and his current situation with family relationships, the law, etc.; pt requests a Bible which was brought back to him later; pt requested call to his AA sponsor which was also done for patient later in the day; pt gave verbal permission to call his sponsor and tell him everything;
[2020-11-14 17:32] VITALS: BP 131/84; PULSE 70; RESP 16; TEMP 37.1; O2SAT 95
[2020-11-14 22:18] VITALS: BP 99/65; PULSE 60; RESP 18; TEMP 36.3; O2SAT 98
[2020-11-14] MEDS: Dronabinol 2.5 MG Capsule 10 MG PO (22:28)
[2020-11-14] MEDS: lamoTRIgine 25 MG Tablet PO (22:29)
[2020-11-14] MEDS: traZODone 100 MG Tablet PO (22:32)
[2020-11-15] MEDS: Phenobarbital 32.4 MG Tablet PO ×4 (02:45→20:46)
[2020-11-15] MEDS: Levothyroxine 150 MCG Tablet 300 MCG PO (06:25)
[2020-11-15 06:26] VITALS: BP 135/78; PULSE 88; RESP 16; TEMP 36.9; O2SAT 95
[2020-11-15] MEDS: Folic Acid 1 MG Tablet PO (08:26)
[2020-11-15] MEDS: Pantoprazole Sodium 20 MG Tablet PO (08:27)
[2020-11-15] MEDS: Thiamine Hydrochloride 100 MG Tablet PO (08:27)
[2020-11-15] MEDS: FLUoxetine 20 MG Capsule 40 MG PO (08:27)
--- NOTE | 2020-11-15 09:45 | PCM.PN.HOSP ---
Patient Problems: Active and Suspected Problems Hypokalemia (Acute) Acute alcohol withdrawal (Acute) Subjective: Doing well, no issues overnight. Vitals/I&O's: Vital Signs Temp Pulse Resp BP Pulse Ox 98.4 F 88 16 135/78 H 95 11/15/20 06:26 11/15/20 06:26 11/15/20 06:26 11/15/20 06:26 11/15/20 06:26 Oxygen Delivery Method Room Air Weight: 226 lb 6.636 oz Body Mass Index (BMI) 30.7 Intake and Output for Last 24 Hours 11/13/20 11/14/20 11/15/20 23:59 23:59 23:59 Intake Total 958.33 / 958.33 1200 / 2200 1000 / 1000 Balance 958.33 / 958.33 1200 / 2200 1000 / 1000 General: Alert, Oriented x3, Cooperative, No apparent distress HEENT: Atraumatic, PERRLA, EOMI, Normocephalic Oral: Moist Mucosa Neck: Supple, No JVD Lungs: Clear to auscultation, Normal air movement, No rhonchi, No wheeze, No rales Abdomen: Soft, Non Tender, Non-Distended, No Hepato-splenomegaly Extremities: Capillary Refill Less than 3 Seconds, Edema - Trace Skin: No rashes, No breakdown Neurological: Neuro grossly intact, Sensory exam intact to light touch and pain Psych/Mental Status: Normal Affect, Appropriate Current Medications Dicyclomine HCl (Dicyclomine 10 Mg Capsule) 20 mg PO Q6H PRN PRN PRN Reason: abdominal discomfort Last Admin: 11/13/20 02:21 Dose: 20 mg Documented by: Dronabinol (Dronabinol 2.5 Mg Capsule) 10 mg PO QHS [facility] Last Admin: 11/14/20 22:28 Dose: 10 mg Documented by: Fluoxetine HCl (Fluoxetine 20 Mg Capsule) 40 mg PO DAILY [facility] Last Admin: 11/15/20 08:27 Dose: 40 mg Documented by: Folic Acid (Folic Acid 1 Mg Tablet) 1 mg PO DAILY@0800 [facility] Last Admin: 11/15/20 08:26 Dose: 1 mg Documented by: Gabapentin (Gabapentin 300 Mg Capsule) 300 mg PO Q8H PRN PRN PRN Reason: moderate to severe anxiety Last Admin: 11/13/20 06:09 Dose: 300 mg Documented by: Hydroxyzine Pamoate (Hydroxyzine Ana 25 Mg Capsule) 50 mg PO Q4H PRN PRN PRN Reason: mild anxiety Last Admin: 11/14/20 14:43 Dose: 50 mg Documented by: Lamotrigine (Lamotrigine 25 Mg Tablet) 25 mg PO QHS [facility] Last Admin: 11/14/20 22:29 Dose: 25 mg Documented by: Levothyroxine Sodium (Levothyroxine 150 Mcg Tablet) 300 mcg PO DAILY@0600 [facility] Last Admin: 11/15/20 06:25 Dose: 300 mcg Documented by: Loperamide HCl (Loperamide 2 Mg Capsule) 2 mg PO Q4H PRN PRN PRN Reason: LOOSE STOOLS Nutritional Formula (Lactose Free) (Ensure Enlive 120 Ml Liquid) 120 ml PO 4X/DAY [facility] Last Admin: 11/15/20 08:44 Dose: 120 ml Documented by: Ondansetron HCl (Ondansetron 8 Mg Tablet) 8 mg PO Q8H PRN PRN PRN Reason: NAUSEA Last Admin: 11/13/20 02:21 Dose: 8 mg Documented by: Pantoprazole Sodium (Pantoprazole Sodium 20 Mg Tablet) 20 mg PO DAILY [facility] Last Admin: 11/15/20 08:27 Dose: 20 mg Documented by: Phenobarbital (Phenobarbital 32.4 Mg Tablet) 64.8 mg PO Q6H [facility]; Taper Stop: 11/17/20 01:59 Last Admin: 11/15/20 08:44 Dose: 64.8 mg Documented by: Sodium Chloride (0.9% Saline Lock 10 Ml Syringe) 10 - 40 ml IV UD PRN PRN Reason: SALINE FLUSH Thiamine HCl (Thiamine Hydrochloride 100 Mg Tablet) [facility] Last Admin: 11/15/20 08:27 Dose: 100 mg Documented by: Trazodone HCl (Trazodone 100 Mg Tablet) 100 mg PO QHS PRN PRN Reason: INSOMNIA Trazodone HCl (Trazodone 100 Mg Tablet) 100 mg PO QHS [facility] Last Admin: 11/14/20 22:32 Dose: 100 mg Documented by: STROKE Vital Signs/Narrative: Vital Signs Temp Pulse Resp BP Pulse Ox 11/15/20 06:26 98.4 F 88 16 135/78 H 95 Medical Necessity - Tobacco Use Smoking Status: Current every day smoker Tobacco Use: Cigarettes, Vapor Assessment/Plan All Active Problems Hypokalemia (Acute) Acute alcohol withdrawal (Acute) 1. Acute alcohol withdrawal/depression/bipolar disorder -Continue with the alcohol withdrawal protocol -Resume his Prozac and his Lamictal at 25 mg daily to avoid any side effects we will plan to titrate him up over the next 6 to 8 weeks to his 300 mg nightly dose. -He will need to follow-up with 180 as an outpatient -Still has some diaphoresis overnight and does not feel quite ready to go home today 2. Hypothyroidism -Has not been taking his medications for several months -TSH was elevated to 69, discussed with him that being severely hypothyroid for long enough can be fatal -Continue with his Synthroid dosage 3. HIV -He has been noncompliant with his medications and stopped taking his medications for several months -He did bring them with him and therefore will resume those medications -He will need to follow-up with ID as an outpatient for viral load testing and if adjustments to his medications need to be made since he has been off of them for several months -I discussed with him that once again not taking his HIV medications can be fatal 4. Hemochromatosis -LFTs are slightly elevated likely secondary to his hemochromatosis on top of his alcohol use -Continue to monitor 5. Hypokalemia-resolved -PIERRE has resolved VTE: Ambulation Inpatient E&M: 11049 Subs Hosp L2
--- NOTE | 2020-11-15 11:15 | NURSING ---
TOLD PT THIS AM THAT HE WOULD BE DC'D 4/3 BETWEEN 10 & 12.PT ASKED THAT I CALL HIS FRIEND, PATEL SEAY ([phone]) TO ARRANGE CONDUIT INSTALLER /3 AROUND NOON. PATEL STATES HE WILL BE HERE. PATEL GIVEN NUMBER FOR [facility] TO CALL WHEN HE ARRIVES.
[2020-11-15 11:17] VITALS: BP 133/92; PULSE 59; RESP 18; TEMP 36.6; O2SAT 96
[2020-11-15 14:12] VITALS: BP 128/83; PULSE 63; RESP 18; TEMP 36.8; O2SAT 97
[2020-11-15] MEDS: Gabapentin 300 MG Capsule PO (14:18)
[2020-11-15] MEDS: hydrOXYzine PAM 25 MG Capsule 50 MG PO ×2 (14:18→18:11)
[2020-11-15] MEDS: Dronabinol 2.5 MG Capsule 10 MG PO (20:45)
[2020-11-15] MEDS: traZODone 100 MG Tablet PO (20:46)
[2020-11-15] MEDS: lamoTRIgine 25 MG Tablet PO (20:46)
[2020-11-15 20:52] VITALS: BP 147/98; PULSE 62; RESP 18; TEMP 36.3; O2SAT 98
[2020-11-16 02:33] VITALS: BP 126/77; PULSE 60; RESP 16; TEMP 36.3; O2SAT 98
[2020-11-16] MEDS: Phenobarbital 32.4 MG Tablet PO ×2 (02:34→07:35)
[2020-11-16] MEDS: Levothyroxine 150 MCG Tablet 300 MCG PO (06:10)
[2020-11-16] MEDS: hydrOXYzine PAM 25 MG Capsule 50 MG PO (07:35)
[2020-11-16] MEDS: Pantoprazole Sodium 20 MG Tablet PO (07:36)
[2020-11-16] MEDS: FLUoxetine 20 MG Capsule 40 MG PO (07:36)
[2020-11-16] MEDS: Folic Acid 1 MG Tablet PO (07:36)
[2020-11-16] MEDS: Thiamine Hydrochloride 100 MG Tablet PO (07:36)
[2020-11-16 07:42] VITALS: BP 129/86; PULSE 63; RESP 18; TEMP 36.6; O2SAT 96
--- NOTE | 2020-11-16 09:16 | DCINST_ITS ---
- Discharge Diagnoses Current Active Problems: Current Active and Chronic Problems Hypokalemia (Acute) Acute alcohol withdrawal (Acute) Alcohol abuse (Chronic) Bipolar disorder (Chronic) Hemochromatosis (Chronic) Hypothyroidism (Chronic) HIV (human immunodeficiency virus infection) (Chronic) You will use the following diet at home:: Regular Your food should be the consistency of: Regular Your liquids should be the consistency of: Regular/Thin Call your doctor if you observe: Fever of 101 or Higher, Shortness of breath, Dizziness, Fainting spells, Swelling in the ankles, Chest pain, Increased palpitations (irregular heartbeat) Additional Instructions: Take all your medications as prescribed. You are receiving the orange bubble pack for Lamictal, follow those directions exactly on the package once you have taken your last 100 mg pill, would recommend on the next day taking 150 mg that you have at home for a week and then doubling that back to your baseline of 300 mg of Lamictal daily. In the meantime I do recommend you follow-up with your psychiatrist for management as well. It is also important you follow-up with your infectious disease doctor they can do further HIV testing and determine whether or not you should resume your current HIV medications or transition to a different type of medication. Also resume your Synthroid at 300 mcg daily, would recommend having an outpatient TSH done by your PCP in 4 to 6 weeks to make sure that you are moving in the right direction. Allergies/Adverse Reactions: Allergies No Known Allergies Allergy (Verified 11/12/20 14:03) Medications to take at Discharge Dronabinol [Marinol] 10 mg PO QHS 11/12/20 Fluoxetine HCl 40 mg PO DAILY 11/12/20 Omeprazole 20 mg PO DAILY 11/12/20 traZODone [Desyrel] 200 mg PO QHS 11/12/20 Lamotrigine [Lamotrigine ER] 300 mg PO QHS #0 11/16/20 Levothyroxine Sodium [Synthroid] 300 mcg PO DAILY #30 tablet 11/16/20 The following prescriptions were given: Levothyroxine Sodium [Synthroid] 300 mcg PO DAILY #30 tablet Transmission Status: Pending to [facility] Primary Care Physician: YOBANY OSORIO [Other] Test Results: Test results from this visit will be discussed in further detail at your follow- up appointment, if applicable. Please Follow Up With: Dr.Michael Ohara When: 1 week Please Follow Up With: Dr. Yobany Osorio When: 1 week
--- NOTE | 2020-11-16 10:38 | PCM.DC.SUM ---
Discharge Date and Diagnosis - Problem List Patient Problems: Active and Suspected Problems Hypokalemia (Acute) Acute alcohol withdrawal (Acute) Date of Admission: 11/12/20 Date of Discharge: 11/16/20 - Primary Discharge Diagnosis Acute Problems: Active Problems Hypokalemia (Acute) Acute alcohol withdrawal (Acute) - Secondary Discharge Diagnosis Chronic Problems: Chronic Problems Alcohol abuse (Chronic) Bipolar disorder (Chronic) Hemochromatosis (Chronic) Hypothyroidism (Chronic) HIV (human immunodeficiency virus infection) (Chronic) Hospital Course and Treatment Operations: None Procedures: None Summary of Care Provided: Per HPI: The patient is a 55 year old M with past medical history as mentioned above presented to the emergency room requesting admission for acute alcohol intoxication/impending withdrawal for medical stabilization. He has a known history of alcohol abuse, has been drinking for almost 40 years, went for detox last time was on 2011 but he relapsed. He has been drinking every day since then. His last drink was this afternoon around 1 PM. He has been drinking heavily every day and also admitted snorting cocaine occasionally and uses marijuana as well. He mentioned that he does not use cocaine or marijuana daily but intermittently. He mentioned that he supposed to take medications for HIV and hypothyroidism but he has been taking his medication for at least 6 to 7 months. He has been noncompliant. He had a history of HIV, has been on treatment with antiretroviral medications but he is noncompliant. He had a history of hypothyroidism has been on high dose of levothyroxine but he is not taking his levothyroxine. He had a history of depression and bipolar disorder but again not taking his medications including Lamictal and fluoxetine. In the emergency department, blood pressure was slight elevated, other vital signs were stable. Routine blood work was remarkable for creatinine of 1.40, potassium is 2.8. LFT revealed slight elevated liver transaminases. Alk phos and bilirubin are normal. Blood alcohol level is 244. Urinalysis was unremarkable. Urine drug screen was positive for cocaine and cannabinoids. Patient is being admitted for acute alcohol intoxication/impending withdrawal for medical stabilization. Hospital Course 1. Acute alcohol withdrawal/depression/bipolar [id number]-old male who stopped taking all of his meds in April presented to the hospital requesting detox from alcohol. He was started on alcohol withdrawal protocol which he tolerated very well and is willing to follow-up with rehab closer to where he lives in [facility]. He feels better today and is okay with going home today. Of note he had stopped his Lamictal which was 300 mg abruptly back in April therefore we will have to place him on a slow taper to increase, he was ordered the orange bubble pack for Lamictal and instructed that once he completes the bubble pack that he is to take 150 mg of Lamictal daily for a week and then he can increase to 300 mg daily for a week. Is also aware that he needs to follow-up with psychiatry on discharge as well. 2. Hypothyroidism-he stopped taking his Synthroid back in April and his TSH on admission was 69. He was restarted back on his original dose of Synthroid and given a prescription on discharge. It was instructed to him that he has to continue taking his Synthroid and it was stressed to him the dangers of being this severely hypothyroid. He expressed understanding and will take his medications appropriately now. 3. HIV-states he got HIV back when he was in [place] doing IV drug use. He stopped his HIV medications back in April. Has not followed up with his infectious disease doctor. I had stressed to him that he needs to follow-up in have titers and CD4 counts done and to be reinitiated on his antiretroviral medications. Either he will be restarting the same ones that he had been on in April or may be initiated on new ones. 4. Hemochromatosis is a chronic medical condition which complicates care. His home medications were continued where appropriate Patient Problems: Active and Suspected Problems Hypokalemia (Acute) Acute alcohol withdrawal (Acute) - Physical Exam Vitals/I&O's: Vital Signs Temp Pulse Resp BP Pulse Ox 97.9 F 63 18 129/86 H 96 11/16/20 07:42 11/16/20 07:42 11/16/20 07:42 11/16/20 07:42 11/16/20 07:42 Oxygen Delivery Method Room Air Weight: 226 lb 6.636 oz Body Mass Index (BMI) 30.7 Intake and Output for Last 24 Hours 11/14/20 11/15/20 11/16/20 23:59 23:59 23:59 Intake Total 1200 / 2200 3120 / 3620 500 / 500 Balance 1200 / 2200 3120 / 3620 500 / 500 General: Alert, Oriented x3, Cooperative, No apparent distress HEENT: Atraumatic, PERRLA, EOMI, Normocephalic Oral: Moist Mucosa Neck: Supple, No JVD Lungs: Clear to auscultation, Normal air movement, No rhonchi, No wheeze, No rales Abdomen: Soft, Non Tender, Non-Distended, No Hepato-splenomegaly Extremities: Capillary Refill Less than 3 Seconds, Edema - Trace Skin: No rashes, No breakdown Neurological: Neuro grossly intact, Sensory exam intact to light touch and pain Psych/Mental Status: Normal Affect, Appropriate Current Medications Dicyclomine HCl (Dicyclomine 10 Mg Capsule) 20 mg PO Q6H PRN PRN PRN Reason: abdominal discomfort Last Admin: 11/13/20 02:21 Dose: 20 mg Documented by: Dronabinol (Dronabinol 2.5 Mg Capsule) 10 mg PO QHS [facility] Last Admin: 11/15/20 20:45 Dose: 10 mg Documented by: Fluoxetine HCl (Fluoxetine 20 Mg Capsule) 40 mg PO DAILY [facility] Last Admin: 11/16/20 07:36 Dose: 40 mg Documented by: Folic Acid (Folic Acid 1 Mg Tablet) 1 mg PO DAILY@0800 [facility] Last Admin: 11/16/20 07:36 Dose: 1 mg Documented by: Gabapentin (Gabapentin 300 Mg Capsule) 300 mg PO Q8H PRN PRN PRN Reason: moderate to severe anxiety Last Admin: 11/15/20 14:18 Dose: 300 mg Documented by: Hydroxyzine Pamoate (Hydroxyzine Ana 25 Mg Capsule) 50 mg PO Q4H PRN PRN PRN Reason: mild anxiety Last Admin: 11/16/20 07:35 Dose: 50 mg Documented by: Lamotrigine (Lamotrigine 25 Mg Tablet) 25 mg PO QHS [facility] Last Admin: 11/15/20 20:46 Dose: 25 mg Documented by: Levothyroxine Sodium (Levothyroxine 150 Mcg Tablet) 300 mcg PO DAILY@0600 [facility] Last Admin: 11/16/20 06:10 Dose: 300 mcg Documented by: Loperamide HCl (Loperamide 2 Mg Capsule) 2 mg PO Q4H PRN PRN PRN Reason: LOOSE STOOLS Nutritional Formula (Lactose Free) (Ensure Enlive 120 Ml Liquid) 120 ml PO 4X/DAY [facility] Last Admin: 11/16/20 07:36 Dose: 120 ml Documented by: Ondansetron HCl (Ondansetron 8 Mg Tablet) 8 mg PO Q8H PRN PRN PRN Reason: NAUSEA Last Admin: 11/13/20 02:21 Dose: 8 mg Documented by: Pantoprazole Sodium (Pantoprazole Sodium 20 Mg Tablet) 20 mg PO DAILY [facility] Last Admin: 11/16/20 07:36 Dose: 20 mg Documented by: Phenobarbital (Phenobarbital 32.4 Mg Tablet) 32.4 mg PO Q6H [facility]; Taper Stop: 11/17/20 01:59 Last Admin: 11/16/20 07:35 Dose: 32.4 mg Documented by: Sodium Chloride (0.9% Saline Lock 10 Ml Syringe) 10 - 40 ml IV UD PRN PRN Reason: SALINE FLUSH Thiamine HCl ([facility] Hydrochloride 100 Mg Tablet) [facility] Last Admin: 11/16/20 07:36 Dose: 100 mg Documented by: Trazodone HCl (Trazodone 100 Mg Tablet) 100 mg PO QHS PRN PRN Reason: INSOMNIA Trazodone HCl (Trazodone 100 Mg Tablet) 100 mg PO QHS [facility] Last Admin: 11/15/20 20:46 Dose: 100 mg Documented by: Call your doctor if you observe: Fever of 101 or Higher, Shortness of breath, Dizziness, Fainting spells, Swelling in the ankles, Chest pain, Increased palpitations (irregular heartbeat) Home Medications: Medications to take at Discharge Dronabinol [Marinol] 10 mg PO QHS 11/12/20 Fluoxetine HCl 40 mg PO DAILY 11/12/20 Omeprazole 20 mg PO DAILY 11/12/20 traZODone [Desyrel] 200 mg PO QHS 11/12/20 Lamotrigine [Lamotrigine ER] 300 mg PO QHS #0 11/16/20 Levothyroxine Sodium [Synthroid] 300 mcg PO DAILY #30 tablet 11/16/20 Following Prescriptions Were Given to Patient: Levothyroxine Sodium [Synthroid] 300 mcg PO DAILY #30 tablet Transmission Status: Received by [facility] Primary Care Physician: YOBANY OSORIO [Other] Please Follow Up With: Dr.Michael Ohara When: 1 week Please Follow Up With: Dr. Yobany Osorio When: 1 week Disposition: Home Minutes spent on discharge:: 35 Patient Condition:: Stable Medical Necessity - Tobacco Use Smoking Status: Current every day smoker Tobacco Use: Cigarettes, Vapor Meaningful Use Info Meaningful Use Diagnoses (Choose all that apply): None applicable Inpatient E&M: 18953 Disch Hosp
== END 2020-11-16 11:25 | disposition home or self-care (01) | DRG 897 ==
LOC: ED 15:14 → MS3 16:38
PROVIDERS: Admitting Provider Hospitalist; Emergency Provider Emergency Medicine; Visit Provider Family Medicine
DX: F10.239 Alcohol dependence with withdrawal, unspecified (principal); N17.9 Acute kidney failure, unspecified; E87.6 Hypokalemia; F10.229 Alcohol dependence with intoxication, unspecified; E03.9 Hypothyroidism, unspecified; F31.9 Bipolar disorder, unspecified; F14.90 Cocaine use, unspecified, uncomplicated; F12.90 Cannabis use, unspecified, uncomplicated; F17.290 Nicotine dependence, other tobacco product, uncomplicated; Z21 Asymptomatic human immunodeficiency virus [HIV] infection status; Z79.890 Hormone replacement therapy; Z91.14 Patient's other noncompliance with medication regimen; Y90.8 Blood alcohol level of 240 mg/100 ml or more; Z91.19 Patient's noncompliance with other medical treatment and regimen; E83.119 Hemochromatosis, unspecified
CPT/HCPCS: 80048; 80053; 80307; 81001; 82077; 83735; 84443; 85025; 85610; 97802; 99282; 99406; J7030

== ENCOUNTER 2021-09-04 10:06 | Inpatient (IN) | payer MEDICARE, SELFPAY ==
[2021-09-04 10:08] VITALS: BP 134/89; PULSE 69; RESP 14; TEMP 35.3; O2SAT 98
[2021-09-04 10:40] LABS: Absolute Lymphocyte Count 2.85 X10^3/uL (0.83-4.51); Absolute Neutrophil Count 3.3 X10^3/uL (2.0-7.7); Basophil# 0.06 X10^3/uL; Basophil% 0.9 % (0-1); Eosinophil# 0.06 X10^3/uL; Eosinophils% 0.9 % (0-5); Hematocrit 43.6 % (40-54); Hemoglobin 15.4 g/dL (13.0-16.5); Lymphocyte # 2.85 X10^3/ul (0.83-4.51); Lymphocyte % 42.7 % (19-41); Mean Corp Hgb Conc 35.3 g/dL (32-36); Mean Corpuscular Volume 101.9 fL (80-94); Monocyte# 0.37 X10^3/uL; Monocyte% 5.5 % (0-10); NRBC Flagged by Analyzer 0 % (0-5); Neutrophil # 3.29 X10^3/uL (2.7-7.7); Neutrophil % 49.4 % (47-70); Platelet Count 202 K/mm3 (150-450); RBC Distribution Width CV 11.9 % (11.6-14.6); RBC Distribution Width SD 44.9 fl (35.1-43.9); Red Blood Count 4.28 M/mm3 (4.6-6.2); White Blood Count 6.7 K/mm3 (4.4-11.0)
--- NOTE | 2021-09-04 10:44 | ED.RN ---
Patient states last alcohol detox was October of 2020. Began drinking again 2 weeks ago, states drinks approx fifth per day. States last drink was this AM approx 14 shots.
[2021-09-04 10:53] LABS: Anion Gap 7 (5-15); BUN 14 mg/dL (7-18); BUN/Creat Ratio 9.9 RATIO (10-20); Calcium,Total 9.2 mg/dL (8.5-10.1); Chloride 102 mmol/L (98-107); Creatinine, Serum 1.42 mg/dL (0.70-1.30); EST Glomerular Filtration Rate 55 mL/min (>60); Est Glom Filt Rate - Afr Amer 66 mL/min (>60); Glucose 84 mg/dL (74-106); Potassium 3.5 mmol/L (3.5-5.1); Sodium Level 135 mmol/L (136-145)
--- NOTE | 2021-09-04 11:00 | EX.ED.SAOD ---
HPI History of Present Illness Chief Complaint: Substance Abuse Narrative Narrative: . 56-year-old male presenting for alcohol detox. He states his last detox was in October of last year. He states he was doing well and then a couple of weeks ago he thought he would be okay if he had a couple of years that he did this for a couple of days and then the next thing he knew he was drinking 1/5 of vodka a day. Patient states that his last drink was 2 hours ago. He states that he does go into withdrawals and gets the shakes. Patient does not have any severe symptoms currently. Patient has a history of HIV and is followed regularly. He does take medications for this. PFSH PFS Home Medications dronabinol 10 mg PO QHS 11/12/20 [History Last Taken 6 Months Ago ~05/15/20] fluoxetine 40 mg PO DAILY 11/12/20 [History Last Taken 6 Months Ago ~05/15/20] omeprazole 20 mg PO DAILY 11/12/20 [History Last Taken 6 Months Ago ~05/15/20] trazodone 200 mg PO QHS 11/12/20 [History Last Taken 6 Months Ago ~05/15/20] lamotrigine 300 mg PO QHS #0 11/16/20 [Rx Last Taken 6 Months Ago ~05/15/20] levothyroxine 300 mcg PO DAILY #30 tablet 11/16/20 [Rx Last Taken Unknown] Allergy/AdvReac Type Severity Reaction Status Date / Time No Known Allergies Allergy Verified 09/04/21 10:08 Social History Smoking Status: Current every day smoker tobacco type: e-cigarettes ROS ROS ED Constitutional Constitutional ED: Denies chills or fever(s) Eyes Eyes: Denies blurry vision or diplopia ENT ENT ED: Denies rhinorrhea or sore throat Cardiovascular Cardiovascular: Denies chest pain or palpitations Respiratory/Chest Respiratory/Chest: Denies cough or dyspnea Gastrointestinal Gastrointestinal: Denies abdominal pain, nausea or vomiting Genitourinary Genitourinary ED: Denies dysuria or urinary frequency Musculoskeletal Musculoskeletal: Denies arthralgias or myalgias Integumentary Denies rash Neurologic Neurologic: Denies headache(s) or weakness Psychiatric Psychiatric: Denies anxiety or suicidal thoughts EXAM Physical Exam Const Vital Signs: 09/04/21 10:08 Temperature 95.6 F L Temperature Source Temporal Pulse Rate 69 Respiratory Rate 14 Blood Pressure 134/89 H Blood Pressure Mean 104 Pulse Ox 98 Oxygen Delivery Method Room Air Positive well nourished General Appearance ED: NAD; Negative for pallor HEENT Reports moist mucous membranes atraumatic Eyes PERRL and EOMs intact bilaterally Chest Wall inspection of chest normal and palpation of chest normal Resp normal respiratory effort and clear to auscultation bilaterally Cardio regular rate and regular rhythm GI soft to palpation Neuro oriented x3 and CN's II-XII intact bilaterally Sensorium / Orientation: alert Psych mental status grossly normal and thought process normal Skin General Skin Exam: Negative for jaundice or pallor Lesions: no lesions Rashes: no rashes MDM MDM MDM Narrative Medical decision making narrative: Patient presenting 2 hours after his last drink. He request detox. He does not appear to have any withdrawal symptoms currently but does request a dose of Ativan and this was provided. CBC is within normal limits. BMP shows creatinine 1.42 which is patient's baseline. Electrolytes are unremarkable. LFTs show a slight elevation in bilirubin at 1.20. Lipase is negative. EtOH is 114. Urine drug screen is positive for THC which the patient admits to having medication with this in it. Patient was discussed with hospitalist for admission for alcohol detox. Impression: 1. EtOH abuse 2. Request for detox Lab Data Attestation: I reviewed the patient's lab results. Labs: Laboratory Results - last 24 hr 09/04/21 09/04/21 09/04/21 10:30 10:30 10:30 WBC 6.7 RBC 4.28 L Hgb 15.4 Hct 43.6 MCV 101.9 H MCH 36.0 H MCHC 35.3 RDW Std Deviation 44.9 H RDW Coeff of Morena 11.9 Plt Count 202 MPV 9.0 Immature Gran % (Auto) 0.600 Neut % (Auto) 49.4 Lymph % (Auto) 42.7 H [place] % (Auto) 5.5 Eos % (Auto) 0.9 Baso % (Auto) 0.9 Absolute Neuts (auto) 3.3 Absolute Lymphs (auto) 2.85 Nucleated RBC % 0 Sodium 135 L Potassium 3.5 Chloride 102 Carbon Dioxide 26.0 Anion Gap 7 BUN 14 Creatinine 1.42 H Estim Creat Clear Calc 63.00 Est GFR (MDRD) Af Amer 66 Est GFR (MDRD) Non-Af 55 L BUN/Creatinine Ratio 9.9 L Glucose 84 Calcium 9.2 Total Bilirubin Direct Bilirubin AST ALT Alkaline Phosphatase Total Protein Albumin Globulin Lipase Urine Opiates Screen Urine Methadone Screen Ur Barbiturates Screen Ur Phencyclidine Scrn Ur Amphetamines Screen U Methamphetamin-MDMA U Benzodiazepines Scrn Urine Cocaine Screen U Cannabinoids Screen Ur Drug Screen Comment Ethyl Alcohol 114.0 09/04/21 09/04/21 10:30 10:35 WBC RBC Hgb Hct MCV MCH MCHC RDW Std Deviation RDW Coeff of Morena Plt Count MPV Immature Gran % (Auto) Neut % (Auto) Lymph % (Auto) [place] % (Auto) Eos % (Auto) Baso % (Auto) Absolute Neuts (auto) Absolute Lymphs (auto) Nucleated RBC % Sodium Potassium Chloride Carbon Dioxide Anion Gap BUN Creatinine Estim Creat Clear Calc Est GFR (MDRD) Af Amer Est GFR (MDRD) Non-Af BUN/Creatinine Ratio Glucose Calcium Total Bilirubin 1.20 H Direct Bilirubin 0.29 AST 35 ALT 30 Alkaline Phosphatase 70 Total Protein 8.0 Albumin 4.1 Globulin 3.9 Lipase 72 L Urine Opiates Screen NEGATIVE Urine Methadone Screen NEGATIVE Ur Barbiturates Screen NEGATIVE Ur Phencyclidine Scrn NEGATIVE Ur Amphetamines Screen NEGATIVE U Methamphetamin-MDMA NEGATIVE U Benzodiazepines Scrn NEGATIVE Urine Cocaine Screen NEGATIVE U Cannabinoids Screen POSITIVE H Ur Drug Screen Comment Ethyl Alcohol Discharge Plan Triage Chief Complaint: Substance Abuse ED Provider: Bj Sanchez Dx/Rx/DC Orders Prescriptions: No Action fluoxetine 40 MG capsule 40 mg PO DAILY RF: 0 trazodone 100 MG tablet 200 mg PO QHS RF: 0 omeprazole 20 MG capsule,delayed release(DR/EC) 20 mg PO DAILY RF: 0 dronabinol 10 MG capsule 10 mg PO QHS RF: 0 levothyroxine 300 MCG tablet 300 mcg PO DAILY Qty: 30 RF: 0 lamotrigine 300 MG tablet extended release 24hr 300 mg PO QHS Qty: 0 RF: 0
--- NOTE | 2021-09-04 11:07 | CM.ED ---
LUCRECIA Note Referral Source: Case Find Referral Reason: ESPINOZA SINGER and RN JOSE met with patient. Patient reports he is in the ED for detox. Patient said that he is currently linked with [facility] for AOD treatment and Martha is his counselor and Ana was the group fitness manager. Patient said that he was in a program like IOP for 6 months. Patient reports drinking 1/5th of vodka a day. Patient said that he had not drank for 9 months and then a couple of weeks ago he started drinking beer and it went downhill from there. Patient said that he decided today to get help so it wouldn't get farther. Patient has been in [facility] program before and is aware of the rules for the program which include no visitors, no phones and personal items locked up. Ebony in agreement with [facility] admission and signing contract. LUCRECIA called Barak and updated her that patient is in the ED for admission to [facility] program. Plan: ESPINOZA MATIAS
[2021-09-04 11:09] LABS: Amphetamine Urine VISTA NEGATIVE (<1000 ng/mL); Barbiturate Urine VISTA NEGATIVE (< 200 ng/mL); Benzodiazepine Urine VISTA NEGATIVE (< 200 ng/mL); Cocaine Urine VISTA NEGATIVE (< 300 ng/mL); Ecstacy Urine VISTA NEGATIVE (< 500 ng/mL); Methadone Urine VISTA NEGATIVE (< 300 ng/mL); PCP Urine VISTA NEGATIVE (< 25 ng/mL); THC Urine VISTA POSITIVE (< 50 ng/mL); Vista UDS pH Range 6
[2021-09-04 11:12] LABS: AST(SGOT) 35 U/L (15-37); Alanine Aminotransfer ALT/SGPT 30 U/L (16-61); Albumin, Serum 4.1 g/dL (3.2-5.0); Alkaline Phosphatase 70 U/L (45-117); Bilirubin, Direct 0.29 mg/dL (0.00-0.30); Globulin 3.9 g/dL (2.2-4.2); Lipase 72 U/L (73-393)
[2021-09-04] MEDS: LORazepam 2 MG/ML Syringe 1 MG IV (12:21)
[2021-09-04 12:25] VITALS: BP 118/94; PULSE 62; RESP 22; TEMP 36.7
[2021-09-04 13:20] VITALS: BP 139/89; PULSE 65; RESP 16; TEMP 36.7; O2SAT 99
[2021-09-04 13:27] VITALS: BMI 28.7
--- NOTE | 2021-09-04 13:30 | HP.PCM.HOS_ITS ---
[facility] - General General Date of Admission: 09/04/21 Date of Service: 09/04/21 Chief Complaint: Persistent alcohol drink. High risk for alcohol withdrawal syndrome. HPI Narrative MONICA VALENTINO, is a 56 M with history of chronic alcohol use and dependence came to ER to help with alcohol detoxification. Patient drinks 1/5 of vodka daily. His last admission was in October 2020 and he was sober for 9 months. After that, he started drinking beers which progressively increased to vodka in the last few weeks. Patient has mild tremors. Heart rate and blood pressure controlled. His last drink was 2 hours prior to ED visit. Patient also has history of HIV. Patient also smokes marijuana and does vaping. Patient was smoking cigarettes in the past. In ED, vitals are in normal range. Labs reviewed. Potassium 3.5. BUN/creatinine 14/1.42. Alcohol level 114. U tox positive for cannabinoids. FORMERLY [facility], [facility] Medical History Anxiety Depression Factor 5 Leiden mutation, heterozygous GERD (gastroesophageal reflux disease) Seizures Sleep apnea Home Medications dronabinol 10 mg PO QHS 11/12/20 [History Last Taken 6 Months Ago ~05/15/20] fluoxetine 40 mg PO DAILY 11/12/20 [History Last Taken 6 Months Ago ~05/15/20] omeprazole 20 mg PO DAILY 11/12/20 [History Last Taken 6 Months Ago ~05/15/20] trazodone 200 mg PO QHS PRN 11/12/20 [History Last Taken 6 Months Ago ~05/15/20] lamotrigine 300 mg PO QHS #0 11/16/20 [Rx Last Taken 6 Months Ago ~05/15/20] levothyroxine 300 mcg PO DAILY #30 tablet 11/16/20 [Rx Last Taken 09/04/21] [id number] alafen [Genvoya] 1 tab PO DAILY 09/04/21 [History Last Taken 09/04/21] imipramine HCl 200 mg PO QHS 09/04/21 [History Last Taken Unknown] Allergy/AdvReac Type Severity Reaction Status Date / Time No Known Allergies Allergy Verified 09/04/21 10:08 Social History Smoking Status: Current every day smoker tobacco type: e-cigarettes ROS ROS Narrative Constitutional: Reports fatigue and weakness. No fever. HEENT: Reports systems reviewed and no addt'l complaints, except as documented Respiratory/Chest: Denies chest pain, shortness of breath at rest or with exertion Gastrointestinal: Denies coffee ground emesis, hematemesis or vomiting. Denies stigmata of chronic alcohol use including variceal bleed, ascites or hepatic encephalopathy. Genitourinary: Denies burning urination or new urinary tract symptoms Musculoskeletal: Reports joint pain and limited range of motion Neurologic: In 2012. History of alcohol withdrawal seizure skin: No ulcer. No rash Endocrinology: Reports systems reviewed and no addt'l complaints, except as documented Hematologic/Lymphatic: Reports systems reviewed and no addt'l complaints, except as documented Patient had 2 dosages of COVID-19 vaccine and booster dose. Rest 14 ROS are negative except as mentioned in HPI Vital Signs Vital Signs Vital Signs: 09/04/21 10:08 09/04/21 12:25 Temperature 95.6 F L 98.1 F Temperature Source Temporal Oral Pulse Rate 69 62 Respiratory Rate 14 22 H Blood Pressure 134/89 H 118/94 H Blood Pressure Mean 104 102 Pulse Ox 98 Oxygen Delivery Method Room Air Room Air Weight Weight: 221 lb 12.56 oz Body Mass Index (BMI) 30.0 Physical Exam Narrative General: Alert, Oriented x3, Cooperative HEENT: Atraumatic, PERRLA, EOMI, Normocephalic Oral: No Gingival or Mucosal Lesions/ Ulcerations Neck: Supple, No JVD, Negative Carotid Bruits Lungs: Air entry diminished in bilateral lung bases. No crepitation/rhonchi Cardiovascular: Regular rate, Regular Rhythm, Normal S1, Normal S2, No murmurs Abdomen: Bowel Sounds Present, Soft, Non Tender, Non-Distended : No renal angle tenderness. No suprapubic tenderness. Extremities: No edema, Capillary Refill Less than 3 Seconds Skin: No rashes, No breakdown Musculoskeletal: No Tenderness to Palpation of Joints or Extremities Neurological: Mild tremors of hands. Cranial nerves II-XII grossly intact, DTR 2+/4 and Symmetrical, Neuro grossly intact Psych/Mental Status: No hallucination/delusion. Flat affect. Hyperactive. Results Lab / Micro Data Result Diagrams: 09/04/21 10:30 09/04/21 10:30 Labs: Laboratory Results - last 24 hr 09/04/21 10:30: WBC 6.7, RBC 4.28 L, Hgb 15.4, Hct 43.6, MCV 101.9 H, MCH 36.0 H , MCHC 35.3, RDW Std Deviation 44.9 H, RDW Coeff of Morena 11.9, Plt Count 202, MPV 9.0, Immature Gran % (Auto) 0.600, Neut % (Auto) 49.4, Lymph % (Auto) 42.7 H, [place] % (Auto) 5.5, Eos % (Auto) 0.9, Baso % (Auto) 0.9, Absolute Neuts (auto) 3.3, Absolute Lymphs (auto) 2.85, Nucleated RBC % 0 09/04/21 10:30: Sodium 135 L, Potassium 3.5, Chloride 102, Carbon Dioxide 26.0, Anion Gap 7, BUN 14, Creatinine 1.42 H, Estim Creat Clear Calc 63.00, Est GFR (MDRD) Af Amer 66, Est GFR (MDRD) Non-Af 55 L, BUN/Creatinine Ratio 9.9 L, Glucose 84, Calcium 9.2 09/04/21 10:30: Ethyl Alcohol 114.0 09/04/21 10:30: Total Bilirubin 1.20 H, Direct Bilirubin 0.29, AST 35, ALT 30, Alkaline Phosphatase 70, Total Protein 8.0, Albumin 4.1, Globulin 3.9, Lipase 72 L 09/04/21 10:35: Urine Opiates Screen NEGATIVE, Urine Methadone Screen NEGATIVE, Ur Barbiturates Screen NEGATIVE, Ur Phencyclidine Scrn NEGATIVE, Ur Amphetamines Screen NEGATIVE, U Methamphetamin-MDMA NEGATIVE, U Benzodiazepines Scrn NEGATIVE, Urine Cocaine Screen NEGATIVE, U Cannabinoids Screen POSITIVE H, Ur Drug Screen Comment Assessment & Plan Assessment/Plan (1) Acute alcohol withdrawal: PLAN: 1. Acute alcohol withdrawal syndrome with history of chronic alcohol use, dependence and tolerance: Patient is being admitted on MedSurg floor. Started on buprenorphine based other adjunctive medications for medical stabilization of alcohol withdrawal. ALT AST normal. On thiamine and folic acid. Mild hypokalemia, K3.5 potassium replaced. Monitor electrolytes tomorrow AM. Serum magnesium and phosphorus ordered. 2. CKD stage, G II: Patient baseline creatinine is around 1.4 as October,November 2020. BUN normal. IV fluid Ringer lactate as patient is dehydrated. 3. Smoking marijuana and vaping cigarettes: Patient uses electronic cigarettes. Patient was using conventional cigarettes before. Nicotine replacement. 4. HIV: Home medication regimen. 5. Anxiety and depression: Patient on lamotrigine continued. 6. History of seizure possible alcohol withdrawal seizure. Living will/advanced directive/end of life care: Patient does not have living will or advanced directive. After discussion of benefits/risks procedures involved with full code, DNR CC arrest and DNR CC, the patient opted for full code. Patient does want artificial life support including intubation, tube feed, ventilator and/chest compression, central venous catheter, vasopressor and DC shock if needed Total time spent in [id number] encounter in discussion of advanced directive 16 minutes. Charges/Coding Visit Charges Inpatient E&M: 52284 Init Hosp L3 Procedures Hospitalists Procedures: 76688 Advncd Care Plan 30 Min
[2021-09-04] MEDS: Lactated Ringers 1,000 ML 125 ML IV (14:57)
[2021-09-04] MEDS: Enoxaparin 40 MG/0.4 ML Syringe SC (14:57)
[2021-09-04] MEDS: Phenobarbital 32.4 MG Tablet 97.2 MG PO ×3 (14:57→21:28)
--- NOTE | 2021-09-04 15:01 | ADDICTION ---
This tech writer met with PT to conduct ASAM, MSE, AUDIT assessments and to plan for d/c. PT A+Ox4 and participated actively. All assessments completed and placed in PT's chart. PT plans to f/u with [facility] for follow-up treatment services. PT did not indicate a need for transportation post d/c from [facility].
[2021-09-04] MEDS: 0.9% Saline Lock 10 ML Syringe IV (15:02)
--- NOTE | 2021-09-04 15:17 | PCS.PANDOC ---
PANDEMIC DOCUMENTATION INITIATED: Date: 03/31/2021 Time: 190
[2021-09-04 18:00] VITALS: BP 95/62; PULSE 65; RESP 16; TEMP 36.8; O2SAT 93
[2021-09-04 19:55] LABS: Magnesium 2.5 mg/dL (1.6-2.6); Phosphorus 2.9 mg/dL (2.5-4.9)
[2021-09-04 21:26] VITALS: BP 116/80; PULSE 57; RESP 18; TEMP 36.7; O2SAT 97
[2021-09-04] MEDS: traZODone 100 MG Tablet 200 MG PO (21:28)
[2021-09-05] MEDS: Phenobarbital 32.4 MG Tablet 97.2 MG PO ×2 (01:24→05:30)
[2021-09-05 01:25] VITALS: BP 117/78; PULSE 58; RESP 16; TEMP 36.8; O2SAT 97
[2021-09-05 04:57] LABS: Anion Gap 6 (5-15); BUN 15 mg/dL (7-18); Calcium,Total 8.4 mg/dL (8.5-10.1); Chloride 106 mmol/L (98-107); Creatinine, Serum 1.15 mg/dL (0.70-1.30); EST Glomerular Filtration Rate 70 mL/min (>60); Est Glom Filt Rate - Afr Amer 84 mL/min (>60); Estimated Creatinine Clearance 77.79 ml/min; Glucose 87 mg/dL (74-106); Potassium 3.5 mmol/L (3.5-5.1); Sodium Level 136 mmol/L (136-145)
[2021-09-05 05:29] VITALS: BP 116/81; PULSE 56; RESP 16; TEMP 36.6; O2SAT 96
[2021-09-05] MEDS: Levothyroxine 150 MCG Tablet 300 MCG PO (05:33)
[2021-09-05 10:00] VITALS: BP 106/68; PULSE 66; RESP 16; TEMP 36.7; O2SAT 97
[2021-09-05] MEDS: Thiamine Hydrochloride 100 MG Tablet PO (10:05)
[2021-09-05] MEDS: FLUoxetine 20 MG Capsule 40 MG PO (10:05)
[2021-09-05] MEDS: Pantoprazole Sodium 40 MG Tablet PO (10:05)
[2021-09-05] MEDS: Enoxaparin 40 MG/0.4 ML Syringe SC (10:06)
[2021-09-05] MEDS: Folic Acid 1 MG Tablet PO (10:06)
[2021-09-05] MEDS: ELVITEG/COBI/EMTRIC/TENOFO ALA 1 EACH TABLET PO (10:31)
--- NOTE | 2021-09-05 10:44 | PCM.PN.HOSP ---
Subjective Subjective Feels well. Would like to be out by Wednesday then do a residential program. Objective Data Objective Data Vital Signs: Vital Signs Temp Pulse Resp BP Pulse Ox 36.6 C 56 L 16 116/81 H 96 09/05/21 05:29 09/05/21 05:29 09/05/21 05:29 09/05/21 05:29 09/05/21 05:29 Oxygen Delivery Method Room Air Weight: 96.162 kg Body Mass Index (BMI) 28.7 Intake & Output: Intake and Output for Last 24 Hours 09/03/21 09/04/21 09/05/21 23:59 23:59 23:59 Intake Total 1240 / 1240 Balance 1240 / 1240 Lab / Micro Data Result Diagrams: 09/04/21 10:30 09/05/21 03:32 Labs: Laboratory Results - last 24 hr 09/04/21 10:30: Sodium 135 L, Potassium 3.5, Chloride 102, Carbon Dioxide 26.0, Anion Gap 7, BUN 14, Creatinine 1.42 H, Estim Creat Clear Calc 63.00, Est GFR (MDRD) Af Amer 66, Est GFR (MDRD) Non-Af 55 L, BUN/Creatinine Ratio 9.9 L, Glucose 84, Calcium 9.2 09/04/21 10:30: Ethyl Alcohol 114.0 09/04/21 10:30: Total Bilirubin 1.20 H, Direct Bilirubin 0.29, AST 35, ALT 30, Alkaline Phosphatase 70, Total Protein 8.0, Albumin 4.1, Globulin 3.9, Lipase 72 L 09/04/21 10:30: Phosphorus 2.9, Magnesium 2.5 09/04/21 10:35: Urine Opiates Screen NEGATIVE, Urine Methadone Screen NEGATIVE, Ur Barbiturates Screen NEGATIVE, Ur Phencyclidine Scrn NEGATIVE, Ur Amphetamines Screen NEGATIVE, U Methamphetamin-MDMA NEGATIVE, U Benzodiazepines Scrn NEGATIVE, Urine Cocaine Screen NEGATIVE, U Cannabinoids Screen POSITIVE H, Ur Drug Screen Comment 09/05/21 03:32: Sodium 136, Potassium 3.5, Chloride 106, Carbon Dioxide 24.0, Anion Gap 6, BUN 15, Creatinine 1.15, Estim Creat Clear Calc 77.79, Est GFR (MDRD) Af Amer 84, Est GFR (MDRD) Non-Af 70, BUN/Creatinine Ratio 13.0, Glucose 87, Calcium 8.4 L Physical Exam Const alert and no apparent distress Resp normal respiratory effort, no retractions, no use of accessory muscles and clear to auscultation bilaterally Cardio regular rate, regular rhythm, S1 normal heart sound and S2 normal heart sound GI normal to inspection, nondistended, normoactive bowel sounds, soft to palpation, non-tender and non-distended Extremity normal to inspection Assessment & Plan Assessment/Plan (1) Acute alcohol withdrawal: PLAN: 1. Acute alcohol withdrawal. last drink 09/04 phenobarbital interaction with HIV medications, switch to lorazepam has been drinking for the past 2 weeks. pt wants a residential program. Apparently, he has a warrant for his arrest and will be meeting with his chairman & chief executive officer on on the . If he does not have to go to long term, then he could do a residential program, but this will be have to be determined as outpt. Charges/Coding Visit Charges Inpatient E&M: 07877 Subs Hosp L1
--- NOTE | 2021-09-05 11:29 | NURSING ---
called pt transportation officer, Geovany Ramirez, , per pt request to notify him of admission and that pt still plans to make meeting on Wednesday with PO.
[2021-09-05] MEDS: LORazepam 1 MG Tablet PO ×4 (11:34→23:18)
[2021-09-05] MEDS: lamoTRIgine 150 MG Tablet PO ×2 (11:34→19:51)
[2021-09-05 16:15] VITALS: BP 123/86; PULSE 66; RESP 16; TEMP 36.5; O2SAT 98
[2021-09-05 19:50] VITALS: BP 126/85; PULSE 67; RESP 16; TEMP 36.6; O2SAT 96
[2021-09-05] MEDS: Imipramine HCl 25 MG Tablet 200 MG PO (19:51)
[2021-09-05] MEDS: traZODone 100 MG Tablet 200 MG PO (23:19)
[2021-09-06 01:50] VITALS: BP 122/79; PULSE 62; RESP 14; TEMP 36.6; O2SAT 98
[2021-09-06] MEDS: LORazepam 1 MG Tablet PO ×6 (04:14→23:12)
[2021-09-06] MEDS: Levothyroxine 150 MCG Tablet 300 MCG PO (04:15)
[2021-09-06 08:18] VITALS: BP 114/84; PULSE 69; RESP 16; TEMP 36.4; O2SAT 100
--- NOTE | 2021-09-06 11:54 | PN.HOSP_ITS ---
Subjective Subjective Feels ok, notes some tremulousness. Objective Data Objective Data Vital Signs: Vital Signs Temp Pulse Resp BP Pulse Ox 36.4 C L 69 16 114/84 H 100 09/06/21 08:18 09/06/21 08:18 09/06/21 08:18 09/06/21 08:18 09/06/21 08:18 Oxygen Delivery Method Room Air Weight: 96.162 kg Body Mass Index (BMI) 28.7 Intake & Output: Intake and Output for Last 24 Hours 09/04/21 09/05/21 09/06/21 23:59 23:59 23:59 Intake Total 1240 / 1240 1200 / 1200 350 / 350 Balance 1240 / 1240 1200 / 1200 350 / 350 Lab / Micro Data Result Diagrams: 09/04/21 10:30 09/05/21 03:32 Physical Exam Const alert and oriented x3 Neuro Sensorium / Orientation: awake and alert Psych affect normal Assessment & Plan Assessment/Plan (1) Acute alcohol withdrawal: PLAN: 1. Acute alcohol withdrawal. last drink 09/04 phenobarbital interaction with HIV medications, switch to lorazepam has been drinking for the past 2 weeks. pt wants a residential program. Apparently, he has a warrant for his arrest and will be meeting with his health promotion officer on on the . If he does not have to go to care home, then he could do a residential program, but this will be have to be determined as outpt. low suspicion that he will decompensate given his short stint of heavy drinking (2 weeks) Charges/Coding Visit Charges Inpatient E&M: 16738 Subs Hosp L1
[2021-09-06] MEDS: Pantoprazole Sodium 40 MG Tablet PO (12:05)
[2021-09-06] MEDS: Enoxaparin 40 MG/0.4 ML Syringe SC (12:05)
[2021-09-06] MEDS: Folic Acid 1 MG Tablet PO (12:05)
[2021-09-06] MEDS: ELVITEG/COBI/EMTRIC/TENOFO ALA 1 EACH TABLET PO (12:06)
[2021-09-06] MEDS: lamoTRIgine 150 MG Tablet PO ×2 (12:06→21:19)
[2021-09-06] MEDS: FLUoxetine 20 MG Capsule 40 MG PO (12:06)
[2021-09-06] MEDS: Thiamine Hydrochloride 100 MG Tablet PO (12:06)
[2021-09-06 14:00] VITALS: PULSE 68; RESP 20; O2SAT 96
[2021-09-06 14:30] VITALS: BP 116/69; PULSE 68; RESP 20; TEMP 36.6; O2SAT 96
[2021-09-06 15:48] VITALS: BP 116/69; PULSE 68; RESP 20; TEMP 36.6; O2SAT 96
[2021-09-06 20:15] VITALS: BP 121/89; PULSE 72; RESP 18; TEMP 36.6; O2SAT 97
[2021-09-06] MEDS: hydrOXYzine PAM 25 MG Capsule 50 MG PO (21:19)
[2021-09-06] MEDS: Imipramine HCl 25 MG Tablet 200 MG PO (21:19)
[2021-09-06] MEDS: traZODone 100 MG Tablet 200 MG PO (21:23)
[2021-09-07 02:39] VITALS: BP 116/74; PULSE 66; RESP 18; TEMP 36.4; O2SAT 98
[2021-09-07] MEDS: LORazepam 1 MG Tablet PO ×5 (02:43→19:49)
[2021-09-07] MEDS: Levothyroxine 150 MCG Tablet 300 MCG PO (06:34)
[2021-09-07] MEDS: Folic Acid 1 MG Tablet PO (07:46)
[2021-09-07] MEDS: ELVITEG/COBI/EMTRIC/TENOFO ALA 1 EACH TABLET PO (07:46)
[2021-09-07] MEDS: Thiamine Hydrochloride 100 MG Tablet PO (07:47)
[2021-09-07 08:00] VITALS: BP 131/70; PULSE 66; RESP 18; TEMP 37.2; O2SAT 98
[2021-09-07] MEDS: Enoxaparin 40 MG/0.4 ML Syringe SC (09:53)
[2021-09-07] MEDS: FLUoxetine 20 MG Capsule 40 MG PO (09:53)
[2021-09-07] MEDS: Pantoprazole Sodium 40 MG Tablet PO (09:53)
[2021-09-07] MEDS: lamoTRIgine 150 MG Tablet PO ×2 (09:54→19:49)
--- NOTE | 2021-09-07 10:57 | PCM.PN.HOSP ---
Subjective Subjective Denies hallucinations. Complains of tremulousness. Objective Data Objective Data Vital Signs: Vital Signs Temp Pulse Resp BP Pulse Ox 37.2 C 66 18 131/70 H 98 09/07/21 08:00 09/07/21 08:00 09/07/21 08:00 09/07/21 08:00 09/07/21 08:00 Oxygen Delivery Method Room Air Weight: 96.162 kg Body Mass Index (BMI) 28.7 Intake & Output: Intake and Output for Last 24 Hours 09/05/21 09/06/21 09/07/21 23:59 23:59 23:59 Intake Total 1200 / 1200 1550 / 1550 900 / 900 Balance 1200 / 1200 1550 / 1550 900 / 900 Lab / Micro Data Result Diagrams: 09/04/21 10:30 09/05/21 03:32 Physical Exam Const alert and no apparent distress Exam Limitations: no limitations Psych affect normal Assessment & Plan Assessment/Plan (1) Acute alcohol withdrawal: PLAN: 1. Acute alcohol withdrawal. last drink 09/04 phenobarbital interaction with HIV medications, switch to lorazepam has been drinking for the past 2 weeks. pt wants a residential program. Apparently, he has a warrant for his arrest and will be meeting with his information officer on on the . If he does not have to go to [facility], then he could do a residential program, but this will be have to be determined as outpt. Charges/Coding Visit Charges Inpatient E&M: 43348 Subs Hosp L1
[2021-09-07] MEDS: hydrOXYzine PAM 25 MG Capsule 50 MG PO (14:34)
[2021-09-07 16:00] VITALS: BP 119/78; PULSE 70; RESP 18; TEMP 37; O2SAT 98
[2021-09-07] MEDS: Gabapentin 300 MG Capsule PO (17:29)
[2021-09-07 19:39] VITALS: BP 126/80; PULSE 68; RESP 18; TEMP 36.4; O2SAT 96
[2021-09-07] MEDS: Imipramine HCl 25 MG Tablet 200 MG PO (19:48)
[2021-09-07] MEDS: traZODone 100 MG Tablet 200 MG PO (19:49)
[2021-09-08 01:52] VITALS: BP 116/84; PULSE 65; RESP 18; TEMP 36.4; O2SAT 95
[2021-09-08] MEDS: LORazepam 1 MG Tablet PO ×3 (01:58→13:10)
[2021-09-08] MEDS: Levothyroxine 150 MCG Tablet 300 MCG PO (05:41)
[2021-09-08 06:13] VITALS: BP 140/98; PULSE 68; RESP 16; TEMP 36.3; O2SAT 100
--- NOTE | 2021-09-08 08:16 | MRI_ITS ---
HISTORY: ataxia. TECHNIQUE: Multiplanar and multisequence MR images of the brain were obtained without and with IV gadolinium. IV Contrast dosage and agent: 19 mL Dotarem. # of images incl. paperwork: 368. COMPARISON: None. FINDINGS: Motion artifact lowers the sensitivity of examination. BRAIN PARENCHYMA: Increased T2 FLAIR signal in the bilateral cerebral white matter. Mild left frontal and parietal increased T2 FLAIR signal without enhancement or mass effect. No abnormal focus of restricted diffusion. Mild serpiginous enhancement in the right periventricular region. No enhancing mass in the brain parenchyma. INTRACRANIAL HEMORRHAGE: No acute intracranial hemorrhage. CSF SPACES: Appropriate for age. No midline shift or other significant mass effect. No extra-axial fluid collection. VESSELS: Major intracranial flow voids maintained. ORBITS: Symmetric in appearance. PARANASAL SINUSES: Clear. MRI/Brain W/WO Contrast IMPRESSION: Motion artifact. No evidence of acute infarct or acute intracranial hemorrhage. Mild left frontal and parietal encephalomalacia or old infarcts. Small right periventricular developmental venous anomaly. Chronic white matter changes. at 1327 Reported and signed by: Luh Hendricks MD Electronically Signed: Luh Hendricks MD at 13:25 EST Tel , Service support ,
[2021-09-08 08:41] VITALS: BP 120/84; PULSE 68; RESP 14; TEMP 36.4; O2SAT 95
[2021-09-08] MEDS: Pantoprazole Sodium 40 MG Tablet PO (08:45)
[2021-09-08] MEDS: Folic Acid 1 MG Tablet PO (08:45)
[2021-09-08] MEDS: Thiamine Hydrochloride 100 MG Tablet PO (08:45)
[2021-09-08] MEDS: FLUoxetine 20 MG Capsule 40 MG PO (08:45)
[2021-09-08] MEDS: lamoTRIgine 150 MG Tablet PO (08:45)
[2021-09-08] MEDS: Enoxaparin 40 MG/0.4 ML Syringe SC (08:46)
[2021-09-08] MEDS: ELVITEG/COBI/EMTRIC/TENOFO ALA 1 EACH TABLET PO (08:46)
--- NOTE | 2021-09-08 10:05 | PCM.PN.HOSP ---
Subjective Subjective Patient is a 56-year-old gentleman with past medical history significant for HIV, chronic alcohol dependence who presented with acute alcohol withdrawal Objective Data Objective Data Vital Signs: Vital Signs Temp Pulse Resp BP Pulse Ox 97.5 F L 68 14 120/84 H 95 09/08/21 08:41 09/08/21 08:41 09/08/21 08:41 09/08/21 08:41 09/08/21 08:41 Oxygen Delivery Method Room Air Weight: 96.162 kg Body Mass Index (BMI) 28.7 Intake & Output: Intake and Output for Last 24 Hours 09/06/21 09/07/21 09/08/21 23:59 23:59 23:59 Intake Total 1550 / 1550 2550 / 2550 Balance 1550 / 1550 2550 / 2550 Lab / Micro Data Result Diagrams: 09/04/21 10:30 09/05/21 03:32 Physical Exam Narrative GENERAL: cooperative HEENT: Atraumatic; EYES; Anicteric, Normal Conjunctiva NECK; supple, normal thyroid, RESPIRATORY: Diminished to auscultation CARDIOVASCULAR: Regular S1 S2, GI: soft, normoactive bowel sounds, : No Renal angle tenderness; EXTREMITIES: No edema, no clubbing, MUSCULOSKELETAL: no muscle waisting NEURO: Awake; no lateralizing signs. SKIN: No Rash PSYCH; Flat affect Assessment & Plan Assessment/Plan (1) Acute alcohol withdrawal: PLAN: Patient is a 56-year-old gentleman with past medical history significant for HIV, chronic alcohol dependence who presented with acute alcohol withdrawal 1. Acute alcohol withdrawal -admitted to regular nursing floor currently being managed with lorazepam taper 2.Ataxia ?Do suspect side effect of patient lorazepam however ordered MRI of the brain with and without contrast for subsequent eval. Also did request for PT eval. 3. GERD ?On PPI 4. HIV ?Did continue patient's antiretroviral medications 5. Depression ?Patient is on SSRI continue 6. Hypothyroidism - Patient is on levothyroxine home dose continued Charges/Coding Visit Charges Inpatient E&M: 27521 Subs Hosp L3
[2021-09-08] MEDS: Gabapentin 300 MG Capsule PO (13:10)
--- NOTE | 2021-09-08 13:34 | PCM.DC.SUM ---
Providers Date of Admission: 09/04/21 Primary Care Physician: YOBANY SOTO Reason For Visit: ALCOHOL WITHDRAWL SYNDROME Diagnosis Discharge Diagnosis (1) Acute alcohol withdrawal: Status: Acute Medications at Discharge Home Medications dronabinol 10 mg PO QHS 11/12/20 fluoxetine 40 mg PO DAILY 11/12/20 omeprazole 20 mg PO DAILY 11/12/20 trazodone 200 mg PO QHS PRN 11/12/20 lamotrigine 300 mg PO QHS #0 11/16/20 levothyroxine 300 mcg PO DAILY #30 tablet 11/16/20 Genvoya 1 tab PO DAILY 09/04/21 imipramine HCl 200 mg PO QHS 09/04/21 Hospital Course Summary of Care Provided Minutes Spent on Discharge: 35 Hospital Course: Patient is a 56-year-old gentleman with past medical history significant for HIV, chronic alcohol dependence who presented with acute alcohol withdrawal 1. Acute alcohol withdrawal -admitted to regular nursing floor currently being managed with lorazepam taper -Patient to follow-up with [facility] services for ongoing care regarding his alcohol dependence 2.Ataxia ?Do suspect side effect of patient lorazepam however ordered MRI of the brain with and without contrast for subsequent eval. Also did request for PT eval. -MRI obtained came back negative for acute CVA. 3. GERD ?On PPI 4. HIV ?Did continue patient's antiretroviral medications 5. Depression ?Patient is on SSRI continue 6. Hypothyroidism - Patient is on levothyroxine home dose continued Physical Exam Narrative GENERAL: cooperative HEENT: Atraumatic; EYES; Anicteric, Normal Conjunctiva NECK; supple, normal thyroid, RESPIRATORY: Diminished to auscultation CARDIOVASCULAR: Regular S1 S2, GI: soft, normoactive bowel sounds, : No Renal angle tenderness; EXTREMITIES: No edema, no clubbing, MUSCULOSKELETAL: no muscle waisting NEURO: Awake; no lateralizing signs. SKIN: No Rash PSYCH; Flat affect Weight / BMI Weight Weight: 96.162 kg Body Mass Index (BMI) 28.7 ABG / Lab / Microbiology Data Result Diagrams: 09/04/21 10:30 09/05/21 03:32 Radiography Diagnostic Testing: Radiology Impression Brain MRI 09/08/21 08:16 IMPRESSION: Motion artifact. No evidence of acute infarct or acute intracranial hemorrhage. Mild left frontal and parietal encephalomalacia or old infarcts. Small right periventricular developmental venous anomaly. Chronic white matter changes. at 1327 Reported and signed by: Luh Hendricks MD Electronically Signed: Luh Hendricks MD at 13:25 EST Tel , Service support , D/C Instructions Discharge Diet: No restrictions Discharge Activity: Return to Normal Activity Call your doctor if you observe: Fever of 101 or Higher, Shortness of breath, Fainting spells and Chest pain Meaningful Use Info Meaningful Use Diagnoses (Choose all that apply): None applicable Discharge Plan Admission Admit Date/Time: 09/04/21 13:25 Attending Provider: Eren Lozano Discharge Orders/Prescriptions Prescriptions: Continued fluoxetine 40 MG capsule 40 mg PO DAILY RF: 0 trazodone 100 MG tablet 200 mg PO QHS PRN (Reason: Sleep) RF: 0 omeprazole 20 MG capsule,delayed release(DR/EC) 20 mg PO DAILY RF: 0 dronabinol 10 MG capsule 10 mg PO QHS RF: 0 levothyroxine 300 MCG tablet 300 mcg PO DAILY Qty: 30 RF: 0 lamotrigine 300 MG tablet extended release 24hr 300 mg PO QHS Qty: 0 RF: 0 imipramine HCl 50 mg tablet 200 mg PO QHS RF: 0 Genvoya [phone] mg Tablet 1 tab PO DAILY RF: 0 Referrals / Follow Up: YOBANY SOTO [Other] - Within 2 Weeks Disposition Disposition (needs filled in before D/C Order can be placed): Home, Self Care Charges/Coding Visit Charges Inpatient E&M: 83489 Disch Hosp
--- NOTE | 2021-09-08 15:52 | CHAPLAIN ---
Type of Pastoral Visit _x__ Initial Visit ___ Follow-up Visit ___ On-call Visit ___ General Patient Visit ___ Spiritual Assessment ___ Family Conference ___ Bereavement ___ Rapid Response ___ Code Blue ___ Other (describe below) Pastoral Care Referral From _x__ Patient ___ Family ___ Nurse ___ Physician ___ Metal Worker ___ Mural Painter ___ Other (describe below) Sacrament/Intervention _x__ Active listening ___ Anointing ___ Pentecostalism ___ Bereavement ___ Communion _x__ Teresa exploration ___ _x__ Life review _x__ Prayer ___ Reconciliation ___ Sacrament of Sick _x__ Supportive presence ___ Wedding ___ Other (describe below) Pastoral Comments patient was met in a previous admission in 2020; pt gives update and explains his desire for rehab; pt also clearly states that he wants to develop his Sikhism teresa and knows that his help comes from God; patient has a Bible here that was given to him by his AA Sponsor; pt states he is concerned about options for rehab; this transmission assembler gives information about local [facility] and patient requests this transmission assembler to contact them for possible placement; call made and [facility] will accept patient after the director explains and patient agrees to their program and expectations; phone call by patient is then made to Fourchette Sewer of the patient to gain permission for patient to stay in [facility] for rehab; RN comes at this time to notify patient he is being discharged; phone call made to patient's sister for transportation tonight; support, prayer, listening, affirmation given to patient
[2021-09-08 16:56] VITALS: BP 103/75; PULSE 67; RESP 15; TEMP 36.8; O2SAT 94
== END 2021-09-08 18:00 | disposition home or self-care (01) | DRG 897 ==
LOC: ED 11:12 → MS2 13:41
PROVIDERS: Admitting Provider Internal Medicine; Emergency Provider Student in an Organized Health Care Education/Training Program; Visit Provider Internal Medicine
DX: F10.239 Alcohol dependence with withdrawal, unspecified (principal); D68.2 Hereditary deficiency of other clotting factors; Z21 Asymptomatic human immunodeficiency virus [HIV] infection status; E03.9 Hypothyroidism, unspecified; E87.6 Hypokalemia; F17.290 Nicotine dependence, other tobacco product, uncomplicated; K21.9 Gastro-esophageal reflux disease without esophagitis; F41.9 Anxiety disorder, unspecified; G47.30 Sleep apnea, unspecified; E86.0 Dehydration; N18.2 Chronic kidney disease, stage 2 (mild); Y90.5 Blood alcohol level of 100-119 mg/100 ml; F32.A Depression, unspecified; Z23 Encounter for immunization; Z79.890 Hormone replacement therapy; Z79.899 Other long term (current) drug therapy; R27.0 Ataxia, unspecified; T42.4X5A Adverse effect of benzodiazepines, initial encounter
CPT/HCPCS: 36415; 70553; 80048; 80076; 80307; 82077; 83690; 83735; 84100; 85025; 99284; 99406; A9575; G0008; J7120; 90686; A4216

== ENCOUNTER 2023-04-18 11:53 | Inpatient (IN) | payer MEDICARE, SELFPAY ==
[2023-04-18 11:55] VITALS: BP 144/79; PULSE 87; RESP 14; TEMP 36.6; O2SAT 98; BMI 25.7
[2023-04-18 12:29] LABS: Absolute Neutrophil Count 2.4 X10^3/uL (2.0-7.7); Basophil# 0.02 X10^3/uL; Basophil% 0.3 % (0-1); Eosinophil# 0.08 X10^3/uL; Eosinophils% 1.4 % (0-5); Hematocrit 44.7 % (40-54); Hemoglobin 15.5 g/dL (13.0-16.5); Lymphocyte % 47.7 % (19-41); Mean Corp Hgb Conc 34.7 g/dL (32-36); Mean Corpuscular Hgb 34.3 pg (27.0-32.0); Mean Corpuscular Volume 98.9 fL (80-94); Mean Platelet Vol. 9.2 fl (6.2-12.0); Monocyte# 0.53 X10^3/uL; NRBC Flagged by Analyzer 0 % (0-5); Neutrophil # 2.41 X10^3/uL (2.7-7.7); Neutrophil % 41.1 % (47-70); Platelet Count 127 K/mm3 (150-450); RBC Distribution Width CV 13.4 % (11.6-14.6); RBC Distribution Width SD 49.1 fl (35.1-43.9); Red Blood Count 4.52 M/mm3 (4.6-6.2); White Blood Count 5.9 K/mm3 (4.4-11.0)
[2023-04-18 12:45] LABS: ALB/GLOB Ratio 1.1 RATIO (0.9-2.4); AST(SGOT) 76 U/L (15-37); Alanine Aminotransfer ALT/SGPT 31 U/L (16-61); Alkaline Phosphatase 109 U/L (45-117); Anion Gap 12 (5-15); BUN 16 mg/dL (7-18); BUN/Creat Ratio 14.8 RATIO (10-20); Calcium,Total 8.7 mg/dL (8.5-10.1); Chloride 109 mmol/L (98-107); Creatinine, Serum 1.08 mg/dL (0.70-1.30); EST Glomerular Filtration Rate 74 mL/min (>60); Est Glom Filt Rate - Afr Amer 90 mL/min (>60); Estimated Creatinine Clearance 81.83 ml/min; Globulin 3.7 g/dL (2.2-4.2); Glucose 79 mg/dL (74-106); Potassium 3.5 mmol/L (3.5-5.1); Protein, Total 7.7 g/dL (6.4-8.2); Sodium Level 143 mmol/L (136-145)
[2023-04-18 12:53] LABS: Amphetamine Urine VISTA NEGATIVE (<1000 ng/mL); Barbiturate Urine VISTA NEGATIVE (< 200 ng/mL); Benzodiazepine Urine VISTA NEGATIVE (< 200 ng/mL); Cocaine Urine VISTA NEGATIVE (< 300 ng/mL); Ecstacy Urine VISTA NEGATIVE (< 500 ng/mL); Methadone Urine VISTA NEGATIVE (< 300 ng/mL); PCP Urine VISTA NEGATIVE (< 25 ng/mL); THC Urine VISTA POSITIVE (< 50 ng/mL); Vista UDS pH Range 5
--- NOTE | 2023-04-18 13:05 | EX.ED.SAOD ---
HPI History of Present Illness Chief Complaint: ETOH Intox Narrative Narrative: 57-year-old male presenting for alcohol detox. He has a history of EtOH abuse has been clean for about a year and a half. Patient states he started drinking about a quart a day 2 weeks ago. Straight before he came to the ER. He states he does not have any symptoms now but he will develop shakes. Patient does have HIV but does take medication. He is brought this with him today. [facility] Medical History Anxiety Bipolar disorder Depression Factor 5 Leiden mutation, heterozygous GERD (gastroesophageal reflux disease) Hemochromatosis HIV (human immunodeficiency virus infection) Hypothyroidism Seizures Sleep apnea Home Medications omeprazole 20 mg capsule,delayed release 20 mg PO DAILY gerd 11/12/20 [History Last Taken 6 Months Ago ~05/15/20] levothyroxine 300 mcg tablet 300 mcg PO DAILY thyroid #30 tabs 11/16/20 [Rx Last Taken 09/04/21] elviteg 150 mg-cob 150 mg-emtricit 200 mg-tenofo alafenam 10 mg tablet (Genvoya) 1 tab PO DAILY HIV 09/04/21 [History Last Taken 09/04/21] quetiapine 150 mg tablet,extended release 24 hr 150 mg PO .hs 04/18/23 [History Last Taken Unknown] Allergy/AdvReac Type Severity Reaction Status Date / Time No Known Allergies Allergy Verified 04/18/23 11:54 Social History Smoking Status: Current every day smoker tobacco type: e-cigarettes ROS ROS ED Constitutional Constitutional ED: Denies chills, fever(s) or sweats Eyes Eyes: Denies blurry vision or change in vision ENT ENT ED: Denies ear pain or sore throat Cardiovascular Cardiovascular: Denies chest pain, palpitations or racing heartbeat Respiratory/Chest Respiratory/Chest: Denies cough, dyspnea or sputum Gastrointestinal Gastrointestinal: Denies abdominal pain, constipation, diarrhea, nausea or vomiting Genitourinary Genitourinary ED: Denies dysuria, hematuria or urinary frequency Musculoskeletal Musculoskeletal: Denies arthralgias, myalgias or neck pain Integumentary Denies abscess, Abrasions or rash Neurologic Neurologic: Denies headache(s), paresthesias or weakness Psychiatric Psychiatric: Denies anxiety, depression, suicidal ideation or suicidal thoughts Endocrine Endocrinology: Denies polydipsia or polyuria EXAM Physical Exam Const Vital Signs: 04/18/23 11:55 Temperature 98 F Temperature Source Temporal Pulse Rate 87 Respiratory Rate 14 Blood Pressure 144/79 H Blood Pressure Mean 100 Pulse Ox 98 Oxygen Delivery Method Room Air Positive well nourished General Appearance ED: Negative for pallor HEENT Reports moist mucous membranes Eyes PERRL and EOMs intact bilaterally Resp normal respiratory effort Effort and Inspection: Negative for retractions Cardio regular rate and regular rhythm Neuro oriented x3 and CN's II-XII intact bilaterally Sensorium / Orientation: alert Motor Exam: strength 5/5 throughout Skin General Skin Exam: Negative for jaundice or pallor MDM MDM MDM Narrative Medical decision making narrative: [id number] male presenting for alcohol detox. He states he was clean for a year and a half but started drinking a quart per day a couple of weeks ago. Screening lab work was obtained and is unremarkable. EtOH 251. Drug screen positive for cannabinoid which she admits to using edibles. Will discuss with the hospitalist for admission for detox. Impression: 1. EtOH abuse 2. Presentation for EtOH detox Lab Data Labs: Laboratory Results - last 24 hr 04/18/23 12:16 WBC 5.9 RBC 4.52 L Hgb 15.5 Hct 44.7 MCV 98.9 H MCH 34.3 H MCHC 34.7 RDW Std Deviation 49.1 H RDW Coeff of Morena 13.4 Plt Count 127 L MPV 9.2 Immature Gran % (Auto) 0.500 Neut % (Auto) 41.1 L Lymph % (Auto) 47.7 H [place] % (Auto) 9.0 Eos % (Auto) 1.4 Baso % (Auto) 0.3 Absolute Neuts (auto) 2.4 Absolute Lymphs (auto) 2.80 Nucleated RBC % 0 Sodium 143 Potassium 3.5 Chloride 109 H Carbon Dioxide 22.0 Anion Gap 12 BUN 16 Creatinine 1.08 Estim Creat Clear Calc 81.83 Est GFR (MDRD) Af Amer 90 Est GFR (MDRD) Non-Af 74 BUN/Creatinine Ratio 14.8 Glucose 79 Calcium 8.7 Total Bilirubin 0.70 AST 76 H ALT 31 Alkaline Phosphatase 109 Total Protein 7.7 Albumin 4.0 Globulin 3.7 Albumin/Globulin Ratio 1.1 Urine Opiates Screen NEGATIVE Urine Methadone Screen NEGATIVE Ur Barbiturates Screen NEGATIVE Ur Phencyclidine Scrn NEGATIVE Ur Amphetamines Screen NEGATIVE MDMA (Ecstasy) Screen NEGATIVE U Benzodiazepines Scrn NEGATIVE Urine Cocaine Screen NEGATIVE U Cannabinoids Screen POSITIVE H Ur Drug Screen Comment Ethyl Alcohol 251.0 Discharge Plan Triage Chief Complaint: ETOH Intox ED Provider: Bj Sanchez Dx/Rx/DC Orders Prescriptions: No Action omeprazole 20 MG capsule,delayed release(DR/EC) 20 mg PO DAILY levothyroxine 300 MCG tablet 300 mcg PO DAILY Qty: 30 0RF Genvoya [phone] mg Tablet 1 tab PO DAILY quetiapine 150 mg tablet extended release 24 hr 150 mg PO .hs Patient Comments: TAKE 1 TABLET BY MOUTH EVERY DAY IN THE EVENING Primary Care Provider: YOBANY SOTO Referrals: YOBANY SOTO [Other]
--- NOTE | 2023-04-18 13:33 | ED.RN ---
PT CAUGHT SMOKING IN THE BATHROOM. PT AWARE THAT THIS KIND OF BEHAVIOR WILL NOT BE TOLERATED
--- NOTE | 2023-04-18 13:36 | NURSING ---
MED SURG BRANNON ETOH DETOX
[2023-04-18 14:03] VITALS: BP 140/78; PULSE 72; RESP 16; TEMP 36.6; O2SAT 99
[2023-04-18 14:51] VITALS: BMI 28.3
[2023-04-18 15:04] VITALS: BP 146/84; PULSE 89; RESP 18; TEMP 36.9; O2SAT 95
--- NOTE | 2023-04-18 15:07 | HP.PCM.HOS_ITS ---
HPI - General General Date of Admission: 04/18/23 HPI Narrative MONICA VALENTINO, is a 57 M who presents to the hospital questing detox from alcohol. He went through detox about 18 months ago and had been sober since then however about 2 weeks ago he thought that he had been doing well so that he could maybe have a drink or 2 however this led to relapse he is now here requesting detox. He does have a history of HIV but denies any other symptoms. [facility] Medical History Anxiety Bipolar disorder Depression Factor 5 Leiden mutation, heterozygous GERD (gastroesophageal reflux disease) Hemochromatosis HIV (human immunodeficiency virus infection) Hypothyroidism Seizures Sleep apnea Home Medications omeprazole 20 mg capsule,delayed release 20 mg PO DAILY gerd 11/12/20 [History Last Taken 6 Months Ago ~05/15/20] levothyroxine 300 mcg tablet 300 mcg PO DAILY thyroid #30 tabs 11/16/20 [Rx Last Taken 09/04/21] elviteg 150 mg-cob 150 mg-emtricit 200 mg-tenofo alafenam 10 mg tablet (Genvoya) 1 tab PO DAILY HIV 09/04/21 [History Last Taken 09/04/21] dronabinol 10 mg capsule 10 mg PO DAILY PRN PRN stomach 04/18/23 [History Last Taken Unknown] quetiapine 150 mg tablet,extended release 24 hr 150 mg PO .hs 04/18/23 [History Last Taken Unknown] Allergy/AdvReac Type Severity Reaction Status Date / Time No Known Allergies Allergy Verified 04/18/23 11:54 Family History (Updated 04/18/23 @ 15:[address] James Sousa MD) Other Heart disease Surgical History no surgical history no surgical history Social History Smoking Status: Current every day smoker tobacco type: cigarettes and e- cigarettes ROS Constitutional Constitutional: Denies chills, fatigue, fever(s) or malaise Eyes Eyes: Denies blurry vision ENT HEENT: Denies headache(s) or nasal discharge Cardiovascular Cardiovascular: Denies chest pain, dyspnea on exertion or syncope Respiratory/Chest Respiratory/Chest: Denies cough, shortness of breath at rest or shortness of breath with exertion Gastrointestinal Gastrointestinal: Denies constipation, diarrhea, nausea or vomiting Genitourinary Genitourinary: Denies dysuria Neurologic Neurologic: Reports tremor(s); Denies focal weakness or numbness Psychiatric Psychiatric: Reports anxiety; Denies depression Vital Signs Vital Signs Vital Signs: 04/18/23 11:55 04/18/23 14:03 04/18/23 15:04 Temperature 98 F 98 F 98.5 F Temperature Source Temporal Temporal Oral Pulse Rate 87 72 89 Respiratory Rate 14 16 18 Blood Pressure 144/79 H 140/78 H 146/84 H Blood Pressure Mean 100 98 104 Blood Pressure Source Monitor Blood Pressure Position Semi-Fowlers Blood Pressure Location Right Arm Pulse Ox 98 99 95 Oxygen Delivery Method Room Air Room Air Room Air Weight Weight: 209 lb 3.499 oz Body Mass Index (BMI) 28.3 Physical Exam Narrative General: Alert, Oriented x3, Cooperative, No apparent distress, fidgety and restless HEENT: Atraumatic, PERRLA, EOMI, Normocephalic Oral: Moist Mucosa Neck: Supple, No JVD Lungs: Clear to auscultation, Normal air movement, No rhonchi, No wheeze, No rales Cardiovascular: Regular rate, Regular Rhythm, Normal S1, Normal S2, No murmurs Abdomen: Soft, Non Tender, Non-Distended, No Hepato-splenomegaly Extremities: No edema, Capillary Refill Less than 3 Seconds Skin: No rashes, No breakdown Musculoskeletal: No Tenderness to Palpation of Joints or Extremities Neurological: Cranial nerves II-XII grossly intact, Motor Exam 5/5 strength throughout, Sensory exam intact to light touch and pain Psych/Mental Status: Normal Affect, Appropriate, anxiety Results Lab / Micro Data 04/18/23 12:16 04/18/23 12:16 Labs: Laboratory Results - last 24 hr 04/18/23 12:16: WBC 5.9, RBC 4.52 L, Hgb 15.5, Hct 44.7, MCV 98.9 H, MCH 34.3 H, MCHC 34.7, RDW Std Deviation 49.1 H, RDW Coeff of Morena 13.4, Plt Count 127 L, MPV 9.2, Immature Gran % (Auto) 0.500, Neut % (Auto) 41.1 L, Lymph % (Auto) 47.7 H, [place] % (Auto) 9.0, Eos % (Auto) 1.4, Baso % (Auto) 0.3, Absolute Neuts (auto) 2.4, Absolute Lymphs (auto) 2.80, Nucleated RBC % 0, Sodium 143, Potassium 3.5, Chloride 109 H, Carbon Dioxide 22.0, Anion Gap 12, BUN 16, Creatinine 1.08, Estim Creat Clear Calc 81.83, Est GFR (MDRD) Af Amer 90, Est GFR (MDRD) Non-Af 74, BUN/Creatinine Ratio 14.8, Glucose 79, Calcium 8.7, Total Bilirubin 0.70, AST 76 H, ALT 31, Alkaline Phosphatase 109, Total Protein 7.7, Albumin 4.0, Globulin 3.7, Albumin/Globulin Ratio 1.1, Urine Opiates Screen NEGATIVE, Urine Methadone Screen NEGATIVE, Ur Barbiturates Screen NEGATIVE, Ur Phencyclidine Scrn NEGATIVE, Ur Amphetamines Screen NEGATIVE, MDMA (Ecstasy) Screen NEGATIVE, U Benzodiazepines Scrn NEGATIVE, Urine Cocaine Screen NEGATIVE, U Cannabinoids S creen POSITIVE H, Ur Drug Screen Comment , Ethyl Alcohol 251.0 Assessment & Plan Assessment/Plan (1) Alcohol abuse: PLAN: Plan 1. Acute alcohol withdrawal/tobacco abuse ? Continue with the alcohol withdrawal protocol we will place him on Ativan instead of phenobarbital given his HIV medications ? We will have him follow-up with 180 as an outpatient ? Discussed cessation, will proceed with a nicotine patch 2. Hypothyroidism ? Stable ? Continue with Synthroid 3. HIV ? Continue with his HIV medications DVT: Ambulation 75 minutes was spent on direct patient care, including documentation as well as chart review and collaboration with colleagues Charges/Coding Visit Charges Inpatient E&M: 15138 Init Hosp L3
[2023-04-18] MEDS: LORazepam 1 MG Tablet PO ×2 (15:49→19:45)
[2023-04-18] MEDS: 0.9% Saline Lock 10 ML Syringe IV (17:09)
[2023-04-18] MEDS: LORazepam 2 MG/ML Syringe IV (17:09)
[2023-04-18 17:30] VITALS: BP 151/79; PULSE 80; RESP 20; TEMP 36.6; O2SAT 97
[2023-04-18 19:42] VITALS: BP 156/88; PULSE 84; RESP 16; TEMP 36.8; O2SAT 95
[2023-04-18] MEDS: traZODone 100 MG Tablet PO (22:02)
[2023-04-18] MEDS: QUEtiapine 100 MG Tablet 150 MG PO (22:02)
[2023-04-19 00:55] VITALS: BP 118/68; PULSE 64; RESP 16; TEMP 36.6; O2SAT 96
[2023-04-19] MEDS: LORazepam 1 MG Tablet PO ×6 (00:58→19:50)
[2023-04-19 04:41] VITALS: BP 127/74; PULSE 59; RESP 16; TEMP 36.6; O2SAT 95
[2023-04-19] MEDS: Levothyroxine 150 MCG Tablet 300 MCG PO (04:47)
[2023-04-19] MEDS: ELVITEG/COBI/EMTRIC/TENOFO ALA 1 EACH TABLET PO (07:25)
[2023-04-19] MEDS: Thiamine Hydrochloride 100 MG Tablet PO (07:27)
[2023-04-19] MEDS: Pantoprazole Sodium 20 MG Tablet PO (07:27)
[2023-04-19] MEDS: hydrOXYzine PAM 25 MG Capsule 50 MG PO (07:27)
[2023-04-19] MEDS: Folic Acid 1 MG Tablet PO (07:27)
[2023-04-19 08:23] VITALS: BP 145/94; PULSE 67; RESP 16; TEMP 36.6; O2SAT 98
[2023-04-19] MEDS: 0.9% Saline Lock 10 ML Syringe IV ×2 (09:12→13:21)
[2023-04-19] MEDS: LORazepam 2 MG/ML Syringe IV ×2 (09:12→13:21)
--- NOTE | 2023-04-19 10:22 | PCM.PN.HOSP ---
Subjective Subjective Doing well, some more agitation and tremors today. CIWA score of 17 this morning Objective Data Objective Data Vital Signs: Vital Signs Temp Pulse Resp BP Pulse Ox O2 Del Method 97.9 F 67 16 145/94 H 98 Room Air 04/19/23 08:23 04/19/23 08:23 04/19/23 08:23 04/19/23 08:23 04/19/23 08:23 04/19/23 08:23 Oxygen Delivery Method Room Air Weight: 209 lb 3.499 oz Body Mass Index (BMI) 28.3 Intake & Output: Intake and Output for Last 24 Hours 04/18/23 04/19/23 04/20/23 03:59 03:59 03:59 Intake Total 850 / 850 500 / 500 Balance 850 / 850 500 / 500 Lab / Micro Data 04/18/23 12:16 04/18/23 12:16 Labs: Laboratory Results - last 24 hr 04/18/23 12:16: WBC 5.9, RBC 4.52 L, Hgb 15.5, Hct 44.7, MCV 98.9 H, MCH 34.3 H, MCHC 34.7, RDW Std Deviation 49.1 H, RDW Coeff of Morena 13.4, Plt Count 127 L, MPV 9.2, Immature Gran % (Auto) 0.500, Neut % (Auto) 41.1 L, Lymph % (Auto) 47.7 H, [place] % (Auto) 9.0, Eos % (Auto) 1.4, Baso % (Auto) 0.3, Absolute Neuts (auto) 2.4, Absolute Lymphs (auto) 2.80, Nucleated RBC % 0, Sodium 143, Potassium 3.5, Chloride 109 H, Carbon Dioxide 22.0, Anion Gap 12, BUN 16, Creatinine 1.08, Estim Creat Clear Calc 81.83, Est GFR (MDRD) Af Amer 90, Est GFR (MDRD) Non-Af 74, BUN/Creatinine Ratio 14.8, Glucose 79, Calcium 8.7, Total Bilirubin 0.70, AST 76 H, ALT 31, Alkaline Phosphatase 109, Total Protein 7.7, Albumin 4.0, Globulin 3.7, Albumin/Globulin Ratio 1.1, Urine Opiates Screen NEGATIVE, Urine Methadone Screen NEGATIVE, Ur Barbiturates Screen NEGATIVE, Ur Phencyclidine Scrn NEGATIVE, Ur Amphetamines Screen NEGATIVE, MDMA (Ecstasy) Screen NEGATIVE, U Benzodiazepines Scrn NEGATIVE, Urine Cocaine Screen NEGATIVE, U Cannabinoids Screen POSITIVE H, Ur Drug Screen Comment , Ethyl Alcohol 251.0 Physical Exam Narrative General: Alert, Oriented x3, Cooperative, No apparent distress, fidgety and restless HEENT: Atraumatic, PERRLA, EOMI, Normocephalic Oral: Moist Mucosa Neck: Supple, No JVD Lungs: Clear to auscultation, Normal air movement, No rhonchi, No wheeze, No rales Cardiovascular: Regular rate, Regular Rhythm, Normal S1, Normal S2, No murmurs Abdomen: Soft, Non Tender, Non-Distended, No Hepato-splenomegaly Extremities: No edema, Capillary Refill Less than 3 Seconds Skin: No rashes, No breakdown Musculoskeletal: No Tenderness to Palpation of Joints or Extremities Neurological: Cranial nerves II-XII grossly intact, Motor Exam 5/5 strength throughout, Sensory exam intact to light touch and pain Psych/Mental Status: Normal Affect, Appropriate, anxiety Assessment & Plan Assessment/Plan (1) Alcohol abuse: PLAN: Plan 1. Acute alcohol withdrawal/tobacco abuse ? Continue with the alcohol withdrawal protocol we will place him on Ativan instead of phenobarbital given his HIV medications ? We will have him follow-up with 180 as an outpatient ? Discussed cessation, will proceed with a nicotine patch 2. Hypothyroidism ? Stable ? Continue with Synthroid 3. HIV ? Continue with his HIV medications DVT: Ambulation Charges/Coding Visit Charges Inpatient E&M: 05628 Subs Hosp L2
[2023-04-19 11:19] VITALS: BP 135/70; PULSE 72; RESP 16; TEMP 36.9; O2SAT 95
[2023-04-19 15:32] VITALS: BP 139/89; PULSE 64; RESP 16; TEMP 36.6; O2SAT 98
[2023-04-19] MEDS: traZODone 100 MG Tablet PO (20:38)
[2023-04-19] MEDS: QUEtiapine 100 MG Tablet 150 MG PO (20:38)
[2023-04-19 21:40] VITALS: BP 153/90; PULSE 68; RESP 16; TEMP 37.2; O2SAT 95
[2023-04-20] MEDS: LORazepam 1 MG Tablet PO ×7 (00:05→23:55)
[2023-04-20 03:40] VITALS: BP 105/61; PULSE 54; RESP 16; TEMP 36.7; O2SAT 98
[2023-04-20] MEDS: Levothyroxine 150 MCG Tablet 300 MCG PO (04:10)
--- NOTE | 2023-04-20 08:29 | PCM.PN.HOSP ---
Subjective Subjective Doing well, no issues overnight Objective Data Objective Data Vital Signs: Vital Signs Temp Pulse Resp BP Pulse Ox O2 Del Method 98.1 F 54 L 16 105/61 98 Room Air 04/20/23 03:40 04/20/23 03:40 04/20/23 03:40 04/20/23 03:40 04/20/23 03:40 04/20/23 03:40 Oxygen Delivery Method Room Air Weight: 209 lb 3.499 oz Body Mass Index (BMI) 28.3 Intake & Output: Intake and Output for Last 24 Hours 04/19/23 04/20/23 04/21/23 03:59 03:59 03:59 Intake Total 850 / 850 1750 / 1750 400 / 400 Balance 850 / 850 1750 / 1750 400 / 400 Lab / Micro Data 04/18/23 12:16 04/18/23 12:16 Physical Exam Narrative General: Alert, Oriented x3, Cooperative, No apparent distress, fidgety and restless HEENT: Atraumatic, PERRLA, EOMI, Normocephalic Oral: Moist Mucosa Neck: Supple, No JVD Lungs: Clear to auscultation, Normal air movement, No rhonchi, No wheeze, No rales Cardiovascular: Regular rate, Regular Rhythm, Normal S1, Normal S2, No murmurs Abdomen: Soft, Non Tender, Non-Distended, No Hepato-splenomegaly Extremities: No edema, Capillary Refill Less than 3 Seconds Skin: No rashes, No breakdown Musculoskeletal: No Tenderness to Palpation of Joints or Extremities Neurological: Cranial nerves II-XII grossly intact, Motor Exam 5/5 strength throughout, Sensory exam intact to light touch and pain Psych/Mental Status: Normal Affect, Appropriate, anxiety Assessment & Plan Assessment/Plan (1) Alcohol abuse: PLAN: Plan 1. Acute alcohol withdrawal/tobacco abuse ? Continue with the alcohol withdrawal protocol we will place him on Ativan instead of phenobarbital given his HIV medications ? We will have him meet with 180 to set up outpatient appointments with the rehab center he uses where he lives. ? Discussed cessation, will proceed with a nicotine patch 2. Hypothyroidism ? Stable ? Continue with Synthroid 3. HIV ? Continue with his HIV medications DVT: Ambulation Charges/Coding Visit Charges Inpatient E&M: 24108 Subs Hosp L2
[2023-04-20 08:41] VITALS: BP 143/91; PULSE 73; RESP 18; TEMP 36.7; O2SAT 96
[2023-04-20] MEDS: Thiamine Hydrochloride 100 MG Tablet PO (08:46)
[2023-04-20] MEDS: Gabapentin 300 MG Capsule PO (08:46)
[2023-04-20] MEDS: Pantoprazole Sodium 20 MG Tablet PO (08:46)
[2023-04-20] MEDS: Folic Acid 1 MG Tablet PO (08:46)
[2023-04-20] MEDS: ELVITEG/COBI/EMTRIC/TENOFO ALA 1 EACH TABLET PO (08:47)
--- NOTE | 2023-04-20 10:59 | ADDICTION ---
This expert medical writer met with PT to conduct ASAM, MSE, AUDIT assessments and to plan for d/c. PT A+Ox4 and participated actively. All assessments completed and placed in PT's chart. PT plans to f/u with [facility] for follow-up treatment services. PT will need to call his family for transportation post d/c from [facility].
--- NOTE | 2023-04-20 12:51 | CHAPLAIN ---
Type of Pastoral Visit _x__ Initial Visit ___ Follow-up Visit ___ On-call Visit ___ General Patient Visit ___ Spiritual Assessment ___ Family Conference ___ Bereavement ___ Rapid Response ___ Code Blue ___ Other (describe below) Pastoral Care Referral From _x__ Patient ___ Family ___ Nurse ___ Physician ___ Business Education Instructor ___ Oil Recovery Unit Operator ___ Other (describe below) Sacrament/Intervention _x__ Active listening ___ Anointing ___ Lutheran ___ Bereavement ___ Communion _x__ Teresa exploration ___ _x__ Life review _x__ Prayer ___ Reconciliation ___ Sacrament of Sick _x__ Supportive presence ___ Wedding ___ Other (describe below) Pastoral Comments patient has been seen before in previous admissions; pt remembers this director of research center and acknowledges support desired; pt has had sobriety for over a year but relapsed about two months ago after thinking I could take a drink or two; pt admits taking steps away from prayer, AA meetings, and mandaen have not been good for him and he hopes to reengage; pt given affirmation of his plan, hope for the future, and review of what steps of action he will take; pt also given spiritual care support and prayer; pt welcomes this director of research center for return visit tomorrow before he is discharged; pt is concerned about a ride home to [place]
--- NOTE | 2023-04-20 15:47 | CASEMGMT ---
Social Work SW met with pt and discussed advance directives. Pt confirms that he has completed both a living will and health care POA naming his sister Nicole Vance. Pt made aware that documents are not on file at [facility] and SW requested they be brought in for scanning into the EMR. JINA Foreman
[2023-04-20 19:43] VITALS: BP 143/93; PULSE 68; RESP 18; TEMP 36.9; O2SAT 93
[2023-04-20] MEDS: traZODone 100 MG Tablet PO (19:52)
[2023-04-20] MEDS: QUEtiapine 100 MG Tablet 150 MG PO (19:53)
[2023-04-20] MEDS: Ibuprofen 600 MG Tablet PO (20:52)
[2023-04-21] MEDS: LORazepam 1 MG Tablet PO (05:20)
[2023-04-21] MEDS: Levothyroxine 150 MCG Tablet 300 MCG PO (05:20)
[2023-04-21 05:23] VITALS: BP 120/76; PULSE 61; RESP 16; TEMP 36.8; O2SAT 94
[2023-04-21] MEDS: Thiamine Hydrochloride 100 MG Tablet PO (08:38)
[2023-04-21] MEDS: Pantoprazole Sodium 20 MG Tablet PO (08:38)
[2023-04-21] MEDS: ELVITEG/COBI/EMTRIC/TENOFO ALA 1 EACH TABLET PO (08:38)
[2023-04-21] MEDS: Folic Acid 1 MG Tablet PO (08:38)
--- NOTE | 2023-04-21 08:40 | DCINST_ITS ---
Discharge Instructions Diet Discharge Diet: No restrictions Activity Discharge Activity: Return to Normal Activity Dressing / Incision Call your doctor if you observe: Fever of 101 or Higher, Shortness of breath, Dizziness, Fainting spells, Swelling in the ankles, Chest pain and Increased palpitations (irregular heartbeat) Follow Up Care Test Results: Test results from this visit will be discussed in further detail at your follow- up appointment, if applicable. Discharge Plan Admission Admit Date/Time: 04/18/23 14:26 Attending Provider: James Sousa Primary Care Provider: YOBANY AHUMADA Discharge Orders/Prescriptions Prescriptions: Continued omeprazole 20 MG capsule,delayed release(DR/EC) 20 mg PO DAILY levothyroxine 300 MCG tablet 300 mcg PO DAILY Qty: 30 0RF Genvoya [phone] mg Tablet 1 tab PO DAILY quetiapine 150 mg tablet extended release 24 hr 150 mg PO .hs Patient Comments: TAKE 1 TABLET BY MOUTH EVERY DAY IN THE EVENING dronabinol 10 mg capsule 10 mg PO DAILY PRN PRN (Reason: stomach) Patient Comments: TAKE ONE CAPSULE BY MOUTH EVERY NIGHT AT BEDTIME Referrals / Follow Up: YOBANY SOTO [Other] YOBANY SOTO [Other] Disposition Disposition (needs filled in before D/C Order can be placed): Home, Self Care
[2023-04-21 08:50] VITALS: BP 140/84; PULSE 69; RESP 18; TEMP 36.4; O2SAT 95
--- NOTE | 2023-04-21 09:22 | DS.PCM_ITS ---
Providers Date of Admission: 04/18/23 Primary Care Physician: YOBANY AHUMADA Reason For Visit: ETOH DETOX Diagnosis Discharge Diagnosis (1) Alcohol abuse: Status: Chronic Code(s): F10.10 - Alcohol abuse, uncomplicated Medications at Discharge Home Medications omeprazole 20 mg capsule,delayed release 20 mg PO DAILY gerd 11/12/20 levothyroxine 300 mcg tablet 300 mcg PO DAILY thyroid #30 tabs 11/16/20 elviteg 150 mg-cob 150 mg-emtricit 200 mg-tenofo alafenam 10 mg tablet (Genvoya) 1 tab PO DAILY HIV 09/04/21 dronabinol 10 mg capsule 10 mg PO DAILY PRN PRN stomach 04/18/23 quetiapine 150 mg tablet,extended release 24 hr 150 mg PO .hs 04/18/23 Hospital Course Operations None Procedures None Summary of Care Provided Minutes Spent on Discharge: 33 Hospital Course: Per HPI: MONICA VALENTINO, is a 57 M who presents to the hospital questing detox from alcohol. He went through detox about 18 months ago and had been sober since then however about 2 weeks ago he thought that he had been doing well so that he could maybe have a drink or 2 however this led to relapse he is now here requesting detox. He does have a history of HIV but denies any other symptoms. Hospital Course: 1. Acute alcohol withdrawal?57-year-old male who completed alcohol withdrawal protocol about 18 months ago presented back after relapse. He did complete the alcohol withdrawal protocol again successfully and requested to be discharged today. He did follow-up with 180 to have an outpatient plan set up at the [facility] where he lives. I discussed with him the plan for possible discharge today and he expressed understanding of the risk benefits going home and wants to go home today. 2. Hypothyroidism, HIV of chronic medical conditions which Are care. His home medications were continued where appropriate Physical Exam Narrative General: Alert, Oriented x3, Cooperative, No apparent distress, fidgety and res tless HEENT: Atraumatic, PERRLA, EOMI, Normocephalic Oral: Moist Mucosa Neck: Supple, No JVD Lungs: Clear to auscultation, Normal air movement, No rhonchi, No wheeze, No rales Cardiovascular: Regular rate, Regular Rhythm, Normal S1, Normal S2, No murmurs Abdomen: Soft, Non Tender, Non-Distended, No Hepato-splenomegaly Extremities: No edema, Capillary Refill Less than 3 Seconds Skin: No rashes, No breakdown Musculoskeletal: No Tenderness to Palpation of Joints or Extremities Neurological: Cranial nerves II-XII grossly intact, Motor Exam 5/5 strength throughout, Sensory exam intact to light touch and pain Psych/Mental Status: Normal Affect, Appropriate, anxiety Weight / BMI Weight Weight: 209 lb 3.499 oz Body Mass Index (BMI) 28.3 ABG / Lab / Microbiology Data 04/18/23 12:16 04/18/23 12:16 D/C Instructions Discharge Diet: No restrictions Call your doctor if you observe: Fever of 101 or Higher, Shortness of breath, Dizziness, Fainting spells, Swelling in the ankles, Chest pain and Increased palpitations (irregular heartbeat) Meaningful Use Info Meaningful Use Diagnoses (Choose all that apply): None applicable Discharge Plan Admission Admit Date/Time: 04/18/23 14:26 Attending Provider: James Sousa Primary Care Provider: YOBANY AHUMADA Discharge Orders/Prescriptions Prescriptions: Continued omeprazole 20 MG capsule,delayed release(DR/EC) 20 mg PO DAILY levothyroxine 300 MCG tablet 300 mcg PO DAILY Qty: 30 0RF Genvoya [phone] mg Tablet 1 tab PO DAILY quetiapine 150 mg tablet extended release 24 hr 150 mg PO .hs Patient Comments: TAKE 1 TABLET BY MOUTH EVERY DAY IN THE EVENING dronabinol 10 mg capsule 10 mg PO DAILY PRN PRN (Reason: stomach) Patient Comments: TAKE ONE CAPSULE BY MOUTH EVERY NIGHT AT BEDTIME Referrals / Follow Up: YOBANY SOTO [Other] YOBANY SOTO [Other] Disposition Disposition (needs filled in before D/C Order can be placed): Home, Self Care Charges/Coding Visit Charges Inpatient E&M: 22105 Disch Hosp >30min
== END 2023-04-21 09:05 | disposition home or self-care (01) | DRG 897 ==
LOC: ED 13:13 → MS3 16:07
PROVIDERS: Admitting Provider Family Medicine; Emergency Provider Student in an Organized Health Care Education/Training Program; Visit Provider Family Medicine
DX: F10.239 Alcohol dependence with withdrawal, unspecified (principal); B20 Human immunodeficiency virus [HIV] disease; E03.9 Hypothyroidism, unspecified; F17.210 Nicotine dependence, cigarettes, uncomplicated; Z79.899 Other long term (current) drug therapy; Y90.8 Blood alcohol level of 240 mg/100 ml or more
CPT/HCPCS: 80053; 80307; 82077; 85025; 97802; 99283; A4216